=== PATIENT | female | born 1940 | race Caucasian/White ===

== ENCOUNTER 2017-05-21 06:00 | Day surgery (SDC) | payer MEDICARE, BC ==
[~2017-05-21 06:00] MED LIST: Buffered Lidocaine 0.9% SYRIN* 5 ML/SYR SYRINGE INTRADERM ONE
[2017-05-21] MEDS ORDERED: ceFAZolin 2 GM PREMIX (*) 2 GM/50 ML BAG IVPB ONE (06:07)
[2017-05-21] MEDS ORDERED: Famotidine IV* 10 MG/ML 2 ML (20 mg) ONE (06:07)
[2017-05-21] MEDS ORDERED: Buffered Lidocaine 0.9% SYRIN* 5 ML/SYR SYRINGE ONE (06:07)
[2017-05-21] MEDS ORDERED: Dexamethasone IV* 4 MG/ML 1 ML (4 MG) ONE (06:07)
[2017-05-21] MEDS ORDERED: Lidocaine 1% INJ* 10 MG/ML 30 ML SDV ONE (07:07)
[2017-05-21] MEDS ORDERED: Midazolam* 1 MG/ML 5 ML VIAL (5 MG) ONE (07:25)
[2017-05-21] MEDS ORDERED: fentaNYL* 50 MCG/ML 2 ML VIAL (100 MCG VIAL) ONE (07:26)
[2017-05-21] MEDS ORDERED: Propofol* 10 MG/ML 20 ML BTL IV PUSH ONE (07:27)
[2017-05-21] MEDS ORDERED: Ondansetron INJ* 2 MG/ML VIAL ONE (07:27)
--- NOTE | 2017-05-21 09:15 | RAD ---
INDICATION: Power port placement COMPARISONS: None relevant TECHNIQUE: Fluoroscopy was provided for a vascular access procedure. Total fluoroscopy time is: 4.9 seconds FINDINGS: A right-sided chest port is noted. IMPRESSION: FLUOROSCOPY WAS PROVIDED FOR A VASCULAR ACCESS PROCEDURE CPT II Codes: 6045F
--- NOTE | 2017-05-21 09:15 | RAD ---
HISTORY: Port placement COMPARISONS: None relevant VIEWS: 1: frontal portable view of the chest at 8:37 AM FINDINGS: LINES AND TUBES: Right-sided chest port is noted from a subclavian approach with the tip overlying the cavoatrial junction. CARDIOMEDIASTINAL SILHOUETTE: The cardiomediastinal silhouette is normal for portable technique. PLEURA: The costophrenic angles are sharp. No pleural abnormalities are noted. There is no appreciable pneumothorax. LUNG PARENCHYMA: The lungs are clear. ABDOMEN: The upper abdomen is clear. There is no subphrenic gas. BONES AND SOFT TISSUES: No bone or soft tissue abnormalities are noted. IMPRESSION: LINES AND TUBES ABOVE. NO ACTIVE CARDIOPULMONARY DISEASE.
[2017-05-21 09:34] VITALS: BP 165/87
--- NOTE | 2017-05-21 17:50 | OP ---
CC: Dr. Eduardo Osborne; Dr. Kathy Luciano OPERATIVE REPORT: DATE OF OPERATION: 05/21/17 DATE OF : 44 SURGEON: Eduardo Osborne MD PROFESSIONAL HEALTHCARE REPRESENTATIVE: None. ANESTHESIOLOGIST: Fritz Fuentes MD ANESTHESIA: LMAC anesthesia. PRE-OP DIAGNOSIS: Carcinoma of the lung. POST-OP DIAGNOSIS: Carcinoma of the lung. OPERATIVE PROCEDURE: Placement of right subclavian 8-Maced[place] PowerPort. DESCRIPTION OF PROCEDURE: The patient was supine on the operative table. After adequate intravenous sedation, compression stockings, Zofia Hugger warmer, and intravenous antibiotics, the right neck and chest region were prepped with antiseptic, draped in a sterile fashion. Local infiltrative anesthes ia was administered and right subclavian incision was created approximately 3 cm in size. Inferior po cket was created. Subclavian venipuncture was carried out without difficulty. Guidewire passed thro ugh the peel-away introducer. Catheter was placed and measured and cut at 25 cm, attached to the por t which was sutured in the pocket with 2-0 Prolene. The pocket was closed with 3-0 and 5-0 Vicryl fo llowed by Steri-Strips. The port was accessed. There was good blood return. It was flushed with sa line solution and heparinized solution, followed by a Tegaderm dressing. She was awakened and brought to Recovery in good condition. No complications. No drains. No pathologic specimens. Sponge and instrument counts were correct. Estimated blood loss was 10 mL. [id number]/[facility] #: [id number]
== END 2017-05-21 09:34 | disposition home or self-care (01) ==
LOC: OR 06:00
PROVIDERS: ATTEND Surgery
DX: C34.90 Malignant neoplasm of unspecified part of unspecified bronchus or lung (principal); Z87.891 Personal history of nicotine dependence; E11.9 Type 2 diabetes mellitus without complications; I10 Essential (primary) hypertension; Z88.8 Allergy status to other drugs, medicaments and biological substances; Z86.711 Personal history of pulmonary embolism; Z79.01 Long term (current) use of anticoagulants; E78.5 Hyperlipidemia, unspecified; Z79.84 Long term (current) use of oral hypoglycemic drugs; M10.9 Gout, unspecified; R11.0 Nausea; J44.9 Chronic obstructive pulmonary disease, unspecified; E66.9 Obesity, unspecified; Z68.32 Body mass index [BMI] 32.0-32.9, adult
CPT/HCPCS: 71010; C1788; J0690; J1100; J1642; J2001; J2250; J2405; J2704; J3010

== ENCOUNTER 2018-02-25 14:25 | Inpatient (IN) | payer MEDICARE, BC ==
[2018-02-25] MEDS ORDERED: NS 0.9% 1000 ML* 1,000 ML IV SCH (15:15)
[2018-02-25] MEDS ORDERED: Pantoprazole IV* 40 MG IV SCH (16:00)
[2018-02-25] MEDS: Pantoprazole IV* 80 MG in NS 0.9% 250 ML* 250 ML IVPB SCH (16:53)
[2018-02-25 17:10] LABS: INR 1.32 (0.77-1.02)
[2018-02-25 17:33] LABS: ABS Basophils 0 10^3/ul (0-0.2); ABS Eosinophils 0 10^3/ul (0-0.6); ABS Lymphocytes 0.3 10^3/ul (1.0-4.8); ABS Monocytes 0.4 10^3/ul (0-0.8); ABS Neutrophils 3.6 10^3/ul (1.5-7.7); ABS Nucleated RBC 0 10^3/ul; Eosinophil % 0.1 % (0-6); Hematocrit 25 % (35-47); Hemoglobin 8.2 g/dl (12.0-16.0); Lymphocyte % 6.8 % (25-47); Mean Corpuscular HGB Conc 33 g/dl (31-36); Mean Corpuscular Hemoglobin 32 pg (27-31); Mean Corpuscular Volume 97 fL (80-97); Mean Platelet Volume 7.8 um3 (7.4-10.4); Nucleated Red Blood Cells % 0.2; Platelet Count 215 10^3/ul (150-450); Red Blood Count 2.56 10^6/ul (4.00-5.40); Red Cell Distribution Width 19 % (10.5-15); White Blood Count 4.3 10^3/ul (3.5-10.8)
--- NOTE | 2018-02-25 17:42 | CONS ---
CONSULTATION REPORT: DATE OF CONSULTATION: 02/25/18 REQUESTING PHYSICIAN: Kathy Luciano MD. REASON FOR CONSULTATION: Acute blood loss anemia, occult positive. HISTORY OF PRESENT ILLNESS: This is a very pleasant 77-year-old female with a past medical history significant for adenocarcinoma of the lung, pulmonary embolus, presenting to initially her oncology office today with weakness and fatigue. On questioning today, she admits to 1 week of black stool. In the oncology office today she was noted to be occult positive and her hemoglobin was 4 g below her prior baseline, and she was directly admitted for further evaluation. She states that her stool has been black for the last week. Denies any daron hematochezia. No diarrhea. She denies any epigastric pain, dysphagia, odynophagia. She denies any NSAID consumption. She denies any history of upper endoscopy or lower endoscopy in the past. In the past, she states she has never wanted a colonoscopy. She is continuing to get cycles of chemotherapy. She states she has never had radiation. She states prior to admission, she would have a bowel movement about every 2 to 3 days with some straining and some incomplete evacuation, but denied any dark stool or blood to those movements. She states the black has been for the last week only. She is on steroid therapy with her treatments only, not on continuous dosing. PAST MEDICAL HISTORY: Significant for as above described adenocarcinoma, pulmonary embolus. PAST SURGICAL HISTORY: Significant for appendectomy and right hernia repair. FAMILY HISTORY: Maternal stomach cancer, paternal uncle with prostate cancer, and father with lung cancer. SOCIAL HISTORY: Prior tobacco use, quit at diagnosis. Social alcohol use. Denies illicit substances. REVIEW OF SYSTEMS: The remainder of the 12 systems of review of systems was negative except for as described in the HPI. PHYSICAL EXAMINATION: Vitals in office today, blood pressure 170/90, pulse 71, respirations 18, temperature 98.9, 98% on room air. In general, she is alert and oriented, in no acute distress. Well-nourished, well-developed. HEENT: Atraumatic, normocephalic. Pupils equal, round, and reactive to light. Conjunctivae are pink. Sclerae anicteric. Pupils are reactive and normal. Hematologic: Lymphatic is notable for multiple ecchymosis throughout her body. Respiratory: Normal lung solitario, clear to auscultation. Cardiovascular: Regular rate and rhythm. S1, S2 without murmurs, rubs, or gallops. Abdomen is soft. Mild epigastric tenderness is appreciated on light palpation. No rebound or guarding. Bowel sounds are positive with no palpable hepatosplenomegaly. Extremities: 1+ pitting edema bilaterally. Neurologic: No gross sensory or motor defects appreciated, nonfocal. Psychiatric: Alert and oriented x3. LABORATORY DATA: Hemoglobin today is 8.2 down from 8.8 on 02/24/18. WBC count is 4.6, platelet count is 212. Sodium is 139, potassium is 3.9, chloride 104, CO2 is 27, BUN is 26, creatinine is 0.81. Glucose is 210. Again, occult diagnostic testing was positive for occult blood. ASSESSMENT AND PLAN: This is a very pleasant 77-year-old female with adenocarcinoma of the lung with history of pulmonary embolism on Xarelto therapy , presenting with melena and acute blood loss anemia. 1. Acute blood loss anemia. Plan: Pantoprazole IV drip, continuous. We would monitor H and H every 6 hours. Keep 2 units of PRBCs on hold transfusion per primary service. Agree with holding anticoagulant at this time. The last dose of Xarelto was in the a.m. of 02/25/18. She is hemodynamically stable. She is not tachycardic or hypotensive. Her BUN is slightly elevated. Given the melena and positive occult blood, we will plan on tentative endoscopy on . 2. Non-small cell lung cancer of the lung, stage 4 per Oncology service. 3. History of pulmonary embolism. Currently anticoagulation is being held by primary service. 4. The patient is noted to be a DNR/DNI with a MOLST form completed per oncology note. [id number]/[facility] #: [id number] [facility]
[2018-02-26 00:58] LABS: ABS Basophils 0 10^3/ul (0-0.2); ABS Eosinophils 0 10^3/ul (0-0.6); ABS Lymphocytes 0.4 10^3/ul (1.0-4.8); ABS Monocytes 0.4 10^3/ul (0-0.8); ABS Neutrophils 2.1 10^3/ul (1.5-7.7); ABS Nucleated RBC 0 10^3/ul; Eosinophil % 0.1 % (0-6); Hematocrit 21 % (35-47); Lymphocyte % 13.9 % (25-47); Mean Corpuscular HGB Conc 33 g/dl (31-36); Mean Corpuscular Hemoglobin 32 pg (27-31); Mean Corpuscular Volume 97 fL (80-97); Mean Platelet Volume 7.5 um3 (7.4-10.4); Nucleated Red Blood Cells % 0; Platelet Count 171 10^3/ul (150-450); Red Blood Count 2.19 10^6/ul (4.00-5.40); Red Cell Distribution Width 18 % (10.5-15); White Blood Count 2.9 10^3/ul (3.5-10.8)
[2018-02-26] MEDS: Levothyroxine TAB* 112 MCG TAB PO SCH (05:41)
[2018-02-26] MEDS: Pantoprazole IV* 80 MG in NS 0.9% 250 ML* 250 ML IVPB SCH ×2 (06:04→20:32)
[2018-02-26 07:28] LABS: ABS Basophils 0 10^3/ul (0-0.2); ABS Eosinophils 0 10^3/ul (0-0.6); ABS Lymphocytes 0.5 10^3/ul (1.0-4.8); ABS Monocytes 0.3 10^3/ul (0-0.8); ABS Neutrophils 1.7 10^3/ul (1.5-7.7); ABS Nucleated RBC 0 10^3/ul; Eosinophil % 0.7 % (0-6); Hematocrit 24 % (35-47); Hemoglobin 8.1 g/dl (12.0-16.0); Lymphocyte % 20.4 % (25-47); Mean Corpuscular HGB Conc 34 g/dl (31-36); Mean Corpuscular Hemoglobin 33 pg (27-31); Mean Corpuscular Volume 97 fL (80-97); Mean Platelet Volume 7.6 um3 (7.4-10.4); Nucleated Red Blood Cells % 0.2; Platelet Count 155 10^3/ul (150-450); Red Blood Count 2.48 10^6/ul (4.00-5.40); Red Cell Distribution Width 18 % (10.5-15); White Blood Count 2.6 10^3/ul (3.5-10.8)
[2018-02-26 07:45] LABS: EGFR Non-African American 75.3 (>60)
[2018-02-26] MEDS ORDERED: Metoprolol Succinate XL TAB* 50 MG PO SCH (09:00)
[2018-02-26] MEDS ORDERED: Rivaroxaban TAB(*) 20 MG TAB PO SCH (09:00)
[2018-02-26] MEDS: Lisinopril TAB* 10 MG PO SCH (09:18)
[2018-02-26] MEDS: Metoprolol Succinate XL TAB* 50 MG PO SCH (09:18)
[2018-02-26] MEDS: Atorvastatin* 10 MG TAB PO SCH (09:18)
[2018-02-26] MEDS: glipiZIDE TAB.XL* 5 MG PO SCH (09:18)
[2018-02-26] MEDS ORDERED: fentaNYL* 50 MCG/ML 2 ML VIAL (100 MCG VIAL) ONE (12:42)
[2018-02-26] MEDS ORDERED: Midazolam* 1 MG/ML 10 ML VIAL (10 MG) ONE (12:42)
--- NOTE | 2018-02-26 14:44 | PN ---
Progress Note - Progress Note Date of Service: 02/26/18 - Gastroenterology Note: Patient seen and examined this morning. No new overnight issues. No rectal bleeding. No nausea/emesis. No abdominal pain. ] Vital Signs: Temp Pulse Resp BP Pulse Ox 97.9 F 55 18 119/58 96 02/26/18 07:30 02/26/18 07:30 02/26/18 08:00 02/26/18 07:30 02/26/18 07:30 Physical Examination: General: NAD. CV: RRR. PULM: CTAB. ABDOMEN: Obese, soft. NT/ND. +BS. EXT: No C/C/E. Laboratory Results - last 24 hr 02/25/18 02/25/18 02/25/18 16:34 16:40 16:40 WBC 4.3 RBC 2.56 L Hgb 8.2 L Hct 25 L MCV 97 MCH 32 H MCHC 33 RDW 19 H Plt Count 215 MPV 7.8 Neut % (Auto) 84.1 H Lymph % (Auto) 6.8 L [place] % (Auto) 8.8 H Eos % (Auto) 0.1 Baso % (Auto) 0.2 Absolute Neuts (auto) 3.6 Absolute Lymphs (auto) 0.3 L Absolute Monos (auto) 0.4 Absolute Eos (auto) 0 Absolute Basos (auto) 0 Absolute Nucleated RBC 0 Nucleated RBC % 0.2 INR (Anticoag Therapy) 1.32 H APTT 31.8 Sodium Potassium Chloride Carbon Dioxide Anion Gap BUN Creatinine Est GFR ( Amer) Est GFR (Non-Af Amer) BUN/Creatinine Ratio Glucose POC Glucose (mg/dL) 176 H Calcium Total Bilirubin AST ALT Alkaline Phosphatase Total Protein Albumin Globulin Albumin/Globulin Ratio Blood Type Antibody Screen Crossmatch 02/26/18 02/26/18 02/26/18 00:43 00:50 00:50 WBC 2.9 L RBC 2.19 L Hgb 7.0 L Hct 21 L MCV 97 MCH 32 H MCHC 33 RDW 18 H Plt Count 171 MPV 7.5 Neut % (Auto) 72.9 Lymph % (Auto) 13.9 L [place] % (Auto) 12.9 H Eos % (Auto) 0.1 Baso % (Auto) 0.2 Absolute Neuts (auto) 2.1 Absolute Lymphs (auto) 0.4 L Absolute Monos (auto) 0.4 Absolute Eos (auto) 0 Absolute Basos (auto) 0 Absolute Nucleated RBC 0 Nucleated RBC % 0 INR (Anticoag Therapy) APTT Sodium Potassium Chloride Carbon Dioxide Anion Gap BUN Creatinine Est GFR ( Amer) Est GFR (Non-Af Amer) BUN/Creatinine Ratio Glucose POC Glucose (mg/dL) 139 H Calcium Total Bilirubin AST ALT Alkaline Phosphatase Total Protein Albumin Globulin Albumin/Globulin Ratio Blood Type AB Positive Antibody Screen Negative Crossmatch See Detail 02/26/18 02/26/18 02/26/18 07:15 07:15 07:40 WBC 2.6 L RBC 2.48 L Hgb 8.1 L Hct 24 L MCV 97 MCH 33 H MCHC 34 RDW 18 H Plt Count 155 MPV 7.6 Neut % (Auto) 65.2 Lymph % (Auto) 20.4 L [place] % (Auto) 13.2 H Eos % (Auto) 0.7 Baso % (Auto) 0.5 Absolute Neuts (auto) 1.7 Absolute Lymphs (auto) 0.5 L Absolute Monos (auto) 0.3 Absolute Eos (auto) 0 Absolute Basos (auto) 0 Absolute Nucleated RBC 0 Nucleated RBC % 0.2 INR (Anticoag Therapy) APTT Sodium 142 Potassium 3.6 Chloride 108 Carbon Dioxide 29 Anion Gap 5 BUN 22 Creatinine 0.75 Est GFR ( Amer) 91.2 Est GFR (Non-Af Amer) 75.3 BUN/Creatinine Ratio 29.3 H Glucose 84 POC Glucose (mg/dL) 87 Calcium 8.5 L Total Bilirubin 0.60 AST 24 ALT 19 Alkaline Phosphatase 67 Total Protein 5.1 L Albumin 3.0 L Globulin 2.1 Albumin/Globulin Ratio 1.4 Blood Type Antibody Screen Crossmatch A/P: 77 yo female with adenocarcinoma of the lung on palliative chemotherapy, DM type II, HTN, HLD and PE last year on Xarelto who presented with bright red blood on rectal examination at PCP's office and Hgb of 7.0. There is a questionable hx of melena over the last week. EGD today revealed gastroduodenitis with small duodenal erosion but no active GI bleeding or previous stigmata of bleeding. Last Colonoscopy was 50 years ago and was normal. 1. Acute blood loss anemia ~S/p 2 units of prbcs last night. ~Hgb 8.1 this am after 2 units of prbcs. ~EGD today showed mild GERD, gastroduodenitis with a small erosion in duodenum. Clotest pending to r/o H.pylori. ~On PPI daily. ~Patient agreeable to Colonoscopy on Thursday 03/01 while Xarelto is on hold. ~Will advance diet today and plan for preparation on Thursday with clear liquids. ~Continue to monitor H/H and transfuse prbcs prn. ~Discussed case with Dr. Luciano, Dr. Ryan and patient pre- and post- procedure and patient is agreeable. 2. Adenocarcinoma of the lung ~On chemotherapy. ~Heme/Onc following. Please call with any questions or concerns. Natalie Serrano D.O.
--- NOTE | 2018-02-26 17:24 | PN ---
Progress Note - Progress Note Date of Service: 02/26/18 SOAP: Subjective: [Denies overnight symptoms. No abd pain, n/v. No BMs.] Objective: [ Laboratory Results - last 24 hr 02/25/18 02/26/18 02/26/18 16:40 00:43 00:50 WBC 4.3 2.9 L RBC 2.56 L 2.19 L Hgb 8.2 L 7.0 L Hct 25 L 21 L MCV 97 97 MCH 32 H 32 H MCHC 33 33 RDW 19 H 18 H Plt Count 215 171 MPV 7.8 7.5 Neut % (Auto) 84.1 H 72.9 Lymph % (Auto) 6.8 L 13.9 L [place] % (Auto) 8.8 H 12.9 H Eos % (Auto) 0.1 0.1 Baso % (Auto) 0.2 0.2 Absolute Neuts (auto) 3.6 2.1 Absolute Lymphs (auto) 0.3 L 0.4 L Absolute Monos (auto) 0.4 0.4 Absolute Eos (auto) 0 0 Absolute Basos (auto) 0 0 Absolute Nucleated RBC 0 0 Nucleated RBC % 0.2 0 Sodium Potassium Chloride Carbon Dioxide Anion Gap BUN Creatinine Est GFR ( Amer) Est GFR (Non-Af Amer) BUN/Creatinine Ratio Glucose POC Glucose (mg/dL) 139 H Calcium Total Bilirubin AST ALT Alkaline Phosphatase Total Protein Albumin Globulin Albumin/Globulin Ratio Blood Type Antibody Screen Crossmatch 02/26/18 02/26/18 02/26/18 00:50 07:15 07:15 WBC 2.6 L RBC 2.48 L Hgb 8.1 L Hct 24 L MCV 97 MCH 33 H MCHC 34 RDW 18 H Plt Count 155 MPV 7.6 Neut % (Auto) 65.2 Lymph % (Auto) 20.4 L [place] % (Auto) 13.2 H Eos % (Auto) 0.7 Baso % (Auto) 0.5 Absolute Neuts (auto) 1.7 Absolute Lymphs (auto) 0.5 L Absolute Monos (auto) 0.3 Absolute Eos (auto) 0 Absolute Basos (auto) 0 Absolute Nucleated RBC 0 Nucleated RBC % 0.2 Sodium 142 Potassium 3.6 Chloride 108 Carbon Dioxide 29 Anion Gap 5 BUN 22 Creatinine 0.75 Est GFR ( Amer) 91.2 Est GFR (Non-Af Amer) 75.3 BUN/Creatinine Ratio 29.3 H Glucose 84 POC Glucose (mg/dL) Calcium 8.5 L Total Bilirubin 0.60 AST 24 ALT 19 Alkaline Phosphatase 67 Total Protein 5.1 L Albumin 3.0 L Globulin 2.1 Albumin/Globulin Ratio 1.4 Blood Type AB Positive Antibody Screen Negative Crossmatch See Detail 02/26/18 02/26/18 07:40 15:23 WBC RBC Hgb Hct MCV MCH MCHC RDW Plt Count MPV Neut % (Auto) Lymph % (Auto) [place] % (Auto) Eos % (Auto) Baso % (Auto) Absolute Neuts (auto) Absolute Lymphs (auto) Absolute Monos (auto) Absolute Eos (auto) Absolute Basos (auto) Absolute Nucleated RBC Nucleated RBC % Sodium Potassium Chloride Carbon Dioxide Anion Gap BUN Creatinine Est GFR ( Amer) Est GFR (Non-Af Amer) BUN/Creatinine Ratio Glucose POC Glucose (mg/dL) 87 93 Calcium Total Bilirubin AST ALT Alkaline Phosphatase Total Protein Albumin Globulin Albumin/Globulin Ratio Blood Type Antibody Screen Crossmatch Atorvastatin Calcium (Lipitor*) 10 mg PO QAM [facility] Last Admin: 02/26/18 09:18 Dose: 10 mg Glipizide (Glucotrol Xl*) 5 mg PO QAM [facility] Last Admin: 02/26/18 09:18 Dose: 5 mg Sodium Chloride (Ns 0.9% 1000 Ml*) 1,000 mls @ 100 mls/hr IV PER RATE [facility] Last Admin: 02/25/18 16:42 Dose: 100 mls/hr Pantoprazole Sodium 80 mg/ (Sodium Chloride) 250 mls @ 25 mls/hr IVPB Q10H [facility] ; Protocol Last Admin: 02/26/18 06:04 Dose: 25 mls/hr Levothyroxine Sodium (Synthroid Tab*) 112 mcg PO 0600 [facility] Last Admin: 02/26/18 05:41 Dose: 112 mcg Lisinopril (Prinivil Tab*) 30 mg PO QAM [facility] Last Admin: 02/26/18 09:18 Dose: 30 mg Metoprolol Succinate (Toprol Xl Tab*) 50 mg PO DAILY [facility] Last Admin: 02/26/18 09:18 Dose: 50 mg Vital Signs: Temp Pulse Resp BP Pulse Ox 97.9 F 55 18 119/58 96 02/26/18 07:30 02/26/18 07:30 02/26/18 08:00 02/26/18 07:30 02/26/18 07:30 Exam: Gen: Well appearing 77 yo female in NAD HEENT: MMM CV: RRR, no m/r/g Resp: lungs CTA Abd: soft, nonTTP Ext: no edema ] Assessment: [77 yo female with metastatic NSCLC and h/o DVT on Xarelto with DM who was noted to be progressively anemic, admitted for GI bleed. Upper endoscopy completed this am without obvious source of bleeding.] Plan: [1. GI bleed - no obvious source on upper endoscopy today - cont to monitor H&H, transfuse as necessary - patient agreeable to colonoscopy Thursday 2. NSCLC - on Pemetrexed, tolerating very well 3. DM 4. H/o DVT - Xarelto on hold Dispo: cont inpatient care, colonoscopy Thursday]
[2018-02-27] MEDS: Levothyroxine TAB* 112 MCG TAB PO SCH (06:58)
[2018-02-27 07:38] LABS: ABS Basophils 0 10^3/ul (0-0.2); ABS Eosinophils 0.1 10^3/ul (0-0.6); ABS Lymphocytes 0.7 10^3/ul (1.0-4.8); ABS Monocytes 0.1 10^3/ul (0-0.8); ABS Neutrophils 1.6 10^3/ul (1.5-7.7); ABS Nucleated RBC 0 10^3/ul; Hematocrit 25 % (35-47); Hemoglobin 8.5 g/dl (12.0-16.0); Lymphocyte % 28.5 % (25-47); Mean Corpuscular HGB Conc 34 g/dl (31-36); Mean Corpuscular Hemoglobin 33 pg (27-31); Mean Corpuscular Volume 96 fL (80-97); Mean Platelet Volume 7.8 um3 (7.4-10.4); Nucleated Red Blood Cells % 0.1; Platelet Count 158 10^3/ul (150-450); Red Blood Count 2.62 10^6/ul (4.00-5.40); Red Cell Distribution Width 18 % (10.5-15); White Blood Count 2.5 10^3/ul (3.5-10.8)
[2018-02-27 07:49] LABS: EGFR Non-African American 66.1 (>60)
[2018-02-27] MEDS: Pantoprazole IV* 80 MG in NS 0.9% 250 ML* 250 ML IVPB SCH ×2 (08:20→09:18)
[2018-02-27] MEDS: Metoprolol Succinate XL TAB* 50 MG PO SCH (09:21)
[2018-02-27] MEDS: glipiZIDE TAB.XL* 5 MG PO SCH (09:21)
[2018-02-27] MEDS: Atorvastatin* 10 MG TAB PO SCH (09:21)
[2018-02-27] MEDS: Lisinopril TAB* 10 MG PO SCH (09:21)
--- NOTE | 2018-02-27 10:14 | PN ---
Progress Note - Progress Note Date of Service: 02/27/18 SOAP: Subjective: [Feeling well. No complaints. No BM.] Objective: [ Atorvastatin Calcium (Lipitor*) 10 mg PO QAM [facility] Last Admin: 02/27/18 09:21 Dose: 10 mg Glipizide (Glucotrol Xl*) 5 mg PO QAM [facility] Last Admin: 02/27/18 09:21 Dose: 5 mg Sodium Chloride (Ns 0.9% 1000 Ml*) 1,000 mls @ 100 mls/hr IV PER RATE [facility] Last Admin: 02/25/18 16:42 Dose: 100 mls/hr Pantoprazole Sodium 80 mg/ (Sodium Chloride) 250 mls @ 25 mls/hr IVPB Q10H [facility] ; Protocol Last Admin: 02/27/18 09:18 Dose: Not Given Levothyroxine Sodium (Synthroid Tab*) 112 mcg PO 0600 [facility] Last Admin: 02/27/18 06:58 Dose: 112 mcg Lisinopril ([facility]inivil Tab*) [facility] Last Admin: 02/27/18 09:21 Dose: 30 mg Metoprolol Succinate (Toprol Xl Tab*) 50 mg PO DAILY [facility] Last Admin: 02/27/18 09:21 Dose: 50 mg Laboratory Results - last 24 hr 02/26/18 02/27/18 02/27/18 15:23 06:23 06:45 WBC 2.5 L RBC 2.62 L Hgb 8.5 L Hct 25 L MCV 96 MCH 33 H MCHC 34 RDW 18 H Plt Count 158 MPV 7.8 Neut % (Auto) 63.0 Lymph % (Auto) 28.5 [place] % (Auto) 5.1 Eos % (Auto) 3.0 Baso % (Auto) 0.4 Absolute Neuts (auto) 1.6 Absolute Lymphs (auto) 0.7 L Absolute Monos (auto) 0.1 Absolute Eos (auto) 0.1 Absolute Basos (auto) 0 Absolute Nucleated RBC 0 Nucleated RBC % 0.1 Sodium Potassium Chloride Carbon Dioxide Anion Gap BUN Creatinine Est GFR ( Amer) Est GFR (Non-Af Amer) BUN/Creatinine Ratio Glucose POC Glucose (mg/dL) 93 89 Calcium Total Bilirubin AST ALT Alkaline Phosphatase Total Protein Albumin Globulin Albumin/Globulin Ratio 02/27/18 06:45 WBC RBC Hgb Hct MCV MCH MCHC RDW Plt Count MPV Neut % (Auto) Lymph % (Auto) [place] % (Auto) Eos % (Auto) Baso % (Auto) Absolute Neuts (auto) Absolute Lymphs (auto) Absolute Monos (auto) Absolute Eos (auto) Absolute Basos (auto) Absolute Nucleated RBC Nucleated RBC % Sodium 142 Potassium 3.7 Chloride 108 Carbon Dioxide 29 Anion Gap 5 BUN 21 Creatinine 0.84 Est GFR ( Amer) 80.0 Est GFR (Non-Af Amer) 66.1 BUN/Creatinine Ratio 25.0 H Glucose 84 POC Glucose (mg/dL) Calcium 8.2 L Total Bilirubin 0.40 AST 22 ALT 20 Alkaline Phosphatase 65 Total Protein 5.0 L Albumin 2.9 L Globulin 2.1 Albumin/Globulin Ratio 1.4 Vital Signs: Temp Pulse Resp BP Pulse Ox 97.9 F 70 20 127/69 95 02/27/18 07:33 02/27/18 07:33 02/27/18 08:00 02/27/18 07:33 02/27/18 07:33 Exam: Gen: Well appearing 77 yo female in NAD HEENT: MMM CV: RRR, no m/r/g Resp: lungs CTA Abd: soft, nonTTP Ext: no edema ] Assessment: [77 yo female with metastatic NSCLC and h/o DVT on Xarelto with DM who was noted to be progressively anemic, admitted for GI bleed. Upper endoscopy completed yesterday without obvious source of bleeding. Colonoscopy pending for Thursday.] Plan: [1. GI bleed - no obvious source on upper endoscopy - Hgb stable now, cont to monitor - pending colonoscopy Thursday 2. NSCLC - on Pemetrexed, tolerating very well 3. DM 4. H/o DVT - Xarelto on hold - may require IVC filter depending on colonoscopy results Dispo: cont inpatient care, colonoscopy Thursday]
[2018-02-28] MEDS: Levothyroxine TAB* 112 MCG TAB PO SCH (05:06)
[2018-02-28 05:26] LABS: ABS Basophils 0 10^3/ul (0-0.2); ABS Eosinophils 0.1 10^3/ul (0-0.6); ABS Lymphocytes 0.6 10^3/ul (1.0-4.8); ABS Monocytes 0.1 10^3/ul (0-0.8); ABS Nucleated RBC 0 10^3/ul; Eosinophil % 3.4 % (0-6); Hematocrit 26 % (35-47); Hemoglobin 8.7 g/dl (12.0-16.0); Lymphocyte % 21.7 % (25-47); Mean Corpuscular HGB Conc 34 g/dl (31-36); Mean Corpuscular Hemoglobin 32 pg (27-31); Mean Corpuscular Volume 96 fL (80-97); Mean Platelet Volume 7.5 um3 (7.4-10.4); Nucleated Red Blood Cells % 0.1; Platelet Count 165 10^3/ul (150-450); Red Blood Count 2.72 10^6/ul (4.00-5.40); Red Cell Distribution Width 17 % (10.5-15); White Blood Count 2.8 10^3/ul (3.5-10.8)
[2018-02-28 05:37] LABS: EGFR Non-African American 66.1 (>60)
--- NOTE | 2018-02-28 09:00 | PN ---
Progress Note - Progress Note Date of Service: 02/28/18 SOAP: Subjective: [Doing well. Hard, dark BM yesterday. Clear liquids today and starting prep this afternoon for colonoscopy tomorrow. No c/o abd pain, n/v.] Objective: [ Laboratory Results - last 24 hr 02/27/18 02/27/18 02/28/18 14:43 19:48 03:44 WBC RBC Hgb Hct MCV MCH MCHC RDW Plt Count MPV Neut % (Auto) Lymph % (Auto) [place] % (Auto) Eos % (Auto) Baso % (Auto) Absolute Neuts (auto) Absolute Lymphs (auto) Absolute Monos (auto) Absolute Eos (auto) Absolute Basos (auto) Absolute Nucleated RBC Nucleated RBC % Sodium Potassium Chloride Carbon Dioxide Anion Gap BUN Creatinine Est GFR ( Amer) Est GFR (Non-Af Amer) BUN/Creatinine Ratio Glucose POC Glucose (mg/dL) 145 H 171 H 123 H Calcium Total Bilirubin AST ALT Alkaline Phosphatase Total Protein Albumin Globulin Albumin/Globulin Ratio 02/28/18 02/28/18 05:12 05:12 WBC 2.8 L RBC 2.72 L Hgb 8.7 L Hct 26 L MCV 96 MCH 32 H MCHC 34 RDW 17 H Plt Count 165 MPV 7.5 Neut % (Auto) 71.6 Lymph % (Auto) 21.7 L [place] % (Auto) 2.7 Eos % (Auto) 3.4 Baso % (Auto) 0.6 Absolute Neuts (auto) 2.0 Absolute Lymphs (auto) 0.6 L Absolute Monos (auto) 0.1 Absolute Eos (auto) 0.1 Absolute Basos (auto) 0 Absolute Nucleated RBC 0 Nucleated RBC % 0.1 Sodium 140 Potassium 4.0 Chloride 106 Carbon Dioxide 32 Anion Gap 2 BUN 19 Creatinine 0.84 Est GFR ( Amer) 80.0 Est GFR (Non-Af Amer) 66.1 BUN/Creatinine Ratio 22.6 H Glucose 130 H POC Glucose (mg/dL) Calcium 8.6 Total Bilirubin 0.40 AST 20 ALT 19 Alkaline Phosphatase 68 Total Protein 5.3 L Albumin 3.2 Globulin 2.1 Albumin/Globulin Ratio 1.5 Atorvastatin Calcium (Lipitor*) [facility] Last Admin: 02/27/18 09:21 Dose: 10 mg Glipizide (Glucotrol Xl*) 5 mg PO QAM [facility] Last Admin: 02/27/18 09:21 Dose: 5 mg Heparin Sodium (Porcine) (Heparin Flush Port ([place])) 5 ml FLUSH DAILY [facility]; Protocol Last Admin: 02/28/18 05:07 Dose: 5 ml Levothyroxine Sodium (Synthroid Tab*) 112 mcg PO 0600 [facility] Last Admin: 02/28/18 05:06 Dose: 112 mcg Lisinopril (Prinivil Tab*) 30 mg PO QAM [facility] Last Admin: 02/27/18 09:21 Dose: 30 mg Metoprolol Succinate (Toprol Xl Tab*) 50 mg PO DAILY [facility] Last Admin: 02/27/18 09:21 Dose: 50 mg Polyethylene Glycol/Electrolytes (Golytely*) 4,000 ml PO ONCE ONE; Protocol Stop: 02/28/18 16:01 Vital Signs Temp Pulse Resp BP Pulse Ox 98.7 F 76 18 132/53 96 02/28/18 03:42 02/28/18 03:42 02/28/18 03:42 02/28/18 03:42 02/28/18 03:42 Exam: Gen: Well appearing 77 yo female in NAD HEENT: MMM CV: RRR, no m/r/g Resp: lungs CTA Abd: soft, nonTTP Ext: trace edema LLE, non RLE ] Assessment: [77 yo female with metastatic NSCLC and h/o DVT on Xarelto with DM who was noted to be progressively anemic, admitted for GI bleed. Upper endoscopy completed without obvious source of bleeding. Colonoscopy pending for tomorrow. ] Plan: [1. GI bleed - no obvious source on upper endoscopy - Hgb stable now, cont to monitor - pending colonoscopy tomorrow 2. NSCLC - on Pemetrexed, tolerating very well 3. DM 4. H/o DVT - Xarelto on hold - may require IVC filter depending on colonoscopy results Dispo: cont inpatient care, colonoscopy Thursday] [
[2018-02-28] MEDS: Metoprolol Succinate XL TAB* 50 MG PO SCH (09:07)
[2018-02-28] MEDS: Lisinopril TAB* 10 MG PO SCH (09:07)
[2018-02-28] MEDS: glipiZIDE TAB.XL* 5 MG PO SCH (09:08)
[2018-02-28] MEDS: Atorvastatin* 10 MG TAB PO SCH (09:08)
[2018-02-28] MEDS ORDERED: PEG 3000 GI LAVAGE* 1 GALLON PO ONE (16:00)
--- NOTE | 2018-03-01 04:17 | PRO ---
CC: Dr. Viola Hodge; Dr. Luciano; Dr. Heredia; Dr. Natalie Serrano * GASTROENTEROLOGY OPERATIVE REPORT: DATE OF PROCEDURE: 02/26/18 - ROOM #403 PROCEDURE PERFORMED: Esophagogastroduodenoscopy to third portion of duodenum. GENERAL NEUROLOGIST: Natalie Serrano DO. ANESTHESIA: 1. Midazolam 5 mg IV. 2. Fentanyl 75 mcg IV. 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 She was transfused 1 unit of packed red blood cells overnight; hemoglobin is currently 8.1. She has had no further episodes of bleeding. She has a questionable history of melena over the last week as well. Her last dose of Xarelto was yesterday morning. She had a colonoscopy approximately 50 years ago which was normal at that time. She denies recent endoscopy. PREOPERATIVE DIAGNOSES: 1. Acute blood loss anemia. 2. Rectal bleeding. POSTOPERATIVE DIAGNOSES: 1. Normal-appearing second and third portion of the duodenum. 2. Mild duodenitis of the bulb with 1 erosion. 3. Mild antral gastritis with CLOtest, rule out Helicobacter pylori. 4. Regular-appearing Z-line at 35 cm. 5. Normal mid and proximal esophagus. 6. No active bleeding or previous stigmata of bleeding seen on this examination. 7. Biopsies were not obtained due to Xarelto therapy. RECOMMENDATIONS: 1. Case was discussed with Dr. Ryan, Dr. Luciano, as well as the patient pre and post-procedure. Since the upper endoscopy was fairly unrevealing for a cause of patient's anemia, we will plan for a colonoscopy to be performed on Thursday, 2 days from now for further evaluation. We will continue to hold Xarelto therapy. 2. Continue PPI therapy daily. OPERATIVE PROCEDURE: Esophagogastroduodenoscopy was explained in detail to the patient. The risks, benefits, complications, alternatives, and possibilities of missed lesions were explained and understood. Complications included, but were not limited to, reaction to anesthesia, aspiration, increased risk of bleeding, infection and perforation. All questions were answered. The patient demonstrated understanding of the conversation. Informed consent was obtained. Next, the patient was brought to the endoscopy suite, placed in the left lateral recumbent position while blood pressure, cardiac, and oxygen monitors were applied. The patient was found to be a fit candidate for moderate anesthesia. After adequate IV sedation was achieved, a bite-block was placed. Next, a standard adult Olympus endoscope was inserted per os under direct visualization to the first, second, and third portions of the duodenum. The second and third portions of the duodenum were normal-appearing. Entry into the first portion revealed mild erythema consistent with duodenitis with 1 very small erosion. Further withdrawal into the gastric lumen revealed mild erythema consistent with gastritis. On retroflexion, the patient had a normal gastric cardia sling. The rest of the gastric mucosa was normal appearing. Further withdrawal into the distal esophagus revealed a regular- appearing Z- line at 35 cm. No active bleeding or previous stigmata with bleeding was seen on this examination. Also, cold forceps biopsies were not performed on this examination from the duodenum as well as the esophagus due to current Xarelto therapy. Small tissue sample was obtained for CLOtest to rule out H. pylori. The rest of the tubular esophagus was normal-appearing. Air was then removed from the patient, endoscope was removed from the patient. The patient tolerated the procedure well. There were no immediate complications. 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 Thank you, Dr. Luciano, for allowing us to participate in the care of your patient. If you should have any further questions or concerns, please do not hesitate to contact us. [id number]/[place] #: [id number] [place]
[2018-03-01] MEDS: Levothyroxine TAB* 112 MCG TAB PO SCH (05:03)
[2018-03-01 05:53] LABS: ABS Basophils 0 10^3/ul (0-0.2); ABS Eosinophils 0.1 10^3/ul (0-0.6); ABS Lymphocytes 0.4 10^3/ul (1.0-4.8); ABS Monocytes 0.1 10^3/ul (0-0.8); ABS Neutrophils 1.6 10^3/ul (1.5-7.7); ABS Nucleated RBC 0 10^3/ul; Eosinophil % 3.3 % (0-6); Hematocrit 26 % (35-47); Lymphocyte % 19.4 % (25-47); Mean Corpuscular HGB Conc 35 g/dl (31-36); Mean Corpuscular Hemoglobin 33 pg (27-31); Mean Corpuscular Volume 95 fL (80-97); Mean Platelet Volume 7.4 um3 (7.4-10.4); Nucleated Red Blood Cells % 0; Platelet Count 142 10^3/ul (150-450); Red Blood Count 2.73 10^6/ul (4.00-5.40); Red Cell Distribution Width 17 % (10.5-15); White Blood Count 2.2 10^3/ul (3.5-10.8)
[2018-03-01] MEDS: Atorvastatin* 10 MG TAB PO SCH (09:01)
[2018-03-01] MEDS: Metoprolol Succinate XL TAB* 50 MG PO SCH (09:01)
[2018-03-01] MEDS: Lisinopril TAB* 10 MG PO SCH (09:01)
[2018-03-01] MEDS: glipiZIDE TAB.XL* 5 MG PO SCH (09:01)
[2018-03-01] MEDS ORDERED: fentaNYL* 50 MCG/ML 2 ML VIAL (100 MCG VIAL) ONE (14:57)
[2018-03-01] MEDS ORDERED: Midazolam* 1 MG/ML 10 ML VIAL (10 MG) ONE (14:57)
[2018-03-02] MEDS: Levothyroxine TAB* 112 MCG TAB PO SCH (05:08)
[2018-03-02] MEDS: Metoprolol Succinate XL TAB* 50 MG PO SCH (08:52)
[2018-03-02] MEDS: Lisinopril TAB* 10 MG PO SCH (08:52)
[2018-03-02] MEDS: glipiZIDE TAB.XL* 5 MG PO SCH (08:52)
[2018-03-02] MEDS: Atorvastatin* 10 MG TAB PO SCH (08:52)
--- NOTE | 2018-03-02 17:18 | PN ---
Progress Note - Progress Note Date of Service: 03/02/18 SOAP: Subjective: [No complaints. s/p colonoscopy yesterday. Objective: [ Laboratory Results - last 24 hr 03/01/18 03/02/18 03/02/18 19:43 05:11 12:22 POC Glucose (mg/dL) 181 H 149 H 157 H Atorvastatin Calcium (Lipitor*) 10 mg PO QAM [facility] Last Admin: 03/02/18 08:52 Dose: 10 mg Glipizide (Glucotrol Xl*) 5 mg PO QAM [facility] Last Admin: 03/02/18 08:52 Dose: 5 mg Heparin Sodium (Porcine) (Heparin Flush Port (Ivad)) 5 ml FLUSH DAILY [facility]; Protocol Last Admin: 03/02/18 08:52 Dose: 5 ml Levothyroxine Sodium (Synthroid Tab*) 112 mcg PO 0600 [facility] Last Admin: 03/02/18 05:08 Dose: 112 mcg Lisinopril (Prinivil Tab*) 30 mg PO QAM [facility] Last Admin: 03/02/18 08:52 Dose: 30 mg Metoprolol Succinate (Toprol Xl Tab*) 50 mg PO DAILY [facility] Last Admin: 03/02/18 08:52 Dose: 50 mg Vital Signs: Temp Pulse Resp BP Pulse Ox 98.8 F 84 16 108/46 97 03/02/18 15:24 03/02/18 15:24 03/02/18 15:24 03/02/18 15:24 03/02/18 15:24 Exam: Gen: Well appearing 77 yo female in NAD HEENT: MMM CV: RRR, no m/r/g Resp: lungs CTA Abd: soft, nonTTP Ext: trace edema LLE, non RLE ] Assessment: [77 yo female with metastatic NSCLC and h/o DVT on Xarelto with DM who was noted to be progressively anemic, admitted for GI bleed. Upper endoscopy completed without obvious source of bleeding. Colonoscopy demonstrated a 4cm friable polyp. Plan: [1. GI bleed - likely from friable polyp identified - biopsy results are benign, but due to its size and bleeding it needs to be resected - requested surgical consultation, procedure can be completed as an outpatient 2. NSCLC - on maintenance Pemetrexed, tolerating very well 3. DM 4. H/o DVT - Xarelto on hold - requires IVC filter, to be placed by general surgery Dispo: IVC filter tomorrow, likely discharge following with surgical follow up regarding colon resection
--- NOTE | 2018-03-02 20:56 | CONS ---
CC: Viola Hodge MD; [facility]; [facility] * CONSULTATION REPORT: DATE OF CONSULT: 03/02/18 REQUESTING PROVIDER: LORRIE Figueroa REASON FOR CONSULT: Lower GI bleed with cecal mass and history of PE/DVT. HISTORY OF PRESENT ILLNESS: This is a 77-year-old female with a history of metastatic adeno CA of the lung diagnosed after LN biopsy. She was treated with chemotherapy and has stable disease with high level of function. The patient has history of DVT/PE, for which she has been treated with Xarelto. She had noted dark stools on occasion and had been found to have occult blood on testing by her primary and anemic with a hemoglobin of 8. She was admitted to [facility] on 02/25/18 and she was transfused with a unit of blood. The patient had GI consultation and inpatient upper and lower endoscopy. Upper endoscopy on 02/26/18 revealed mild duodenitis and mild antral gastritis, but no evidence of bleeding. She underwent a colonoscopy on 03/01/18, which revealed a friable large cecal polyp, which was not amenable to endoscopic interventions and therefore surgical consultation was requested. The patient has been off Xarelto and has been hemodynamically stable and no report of melena or hematochezia. PAST MEDICAL HISTORY: Significant for above mentioned illnesses as well as type 2 diabetes, hyperlipidemia, hypertension, pulmonary embolism. PAST SURGICAL HISTORY: Appendectomy, carpal tunnel release, open ventral incisional hernia repair with mesh, tonsillectomy, tubal ligation. SOCIAL HISTORY: She is . Ex-smoker. Has occasional alcohol. FAMILY HISTORY: Mother had stomach cancer. Father had lung cancer. REVIEW OF SYSTEMS: Review of systems was completed. She does report fatigue. No fevers, chills, night sweats. Respiratory: She has some dyspnea on exertion. Cardiovascular: No chest pain, palpitations. GI: As above. Hematologic/Oncologic: As above. PHYSICAL EXAMINATION: She is well-appearing 77-year-old female, obese with a BMI of 35, height 5 feet 7 inches, weight 223 pounds. Temperature 98.8, pulse 84, respirations 16, blood pressure 108/46, O2 sat is 97% on room air. Head is normocephalic and atraumatic. Sclerae anicteric. Mucous membranes are moist. No otorrhea. No rhinorrhea. Neck is symmetrical. Trachea is midline. Lungs are clear to auscultation bilaterally without wheezes, rales, or rhonchi. Heart is regular, S1, S2. No murmurs are appreciated. Abdomen is obese. There is a right paramedian scar. Bowel sounds are present. Soft, nontender. Palpated no masses or hernias. Extremities are warm. LABORATORY DATA: Reviewed. WBCs are 2.2, hemoglobin 9.0, hematocrit 26, platelets 142. Chemistries are notable for normal electrolytes on 02/28/18 with a glucose of 130, BUN of 19, and creatinine of 0.84. Transaminases were normal. Pathology: Biopsies on the colon revealed tubular adenoma in the cecum with no high-grade dysplasia or latency. She also had a serrated adenoma at 15 cm. IMPRESSION: A 77-year-old female with metastatic non-small cell lung cancer with stable disease, felt by Oncology to be reasonable candidate for surgery. She does have multiple other medical problems and had presented to the hospital with lower GI bleed, found to be secondary to a cecal mass, which is not amenable to endoscopic interventions. She also has history of deep venous thrombosis/pulmonary embolism, for which she has been on anticoagulation. PLAN/RECOMMENDATIONS: I discussed the findings with the patient, her daughter, and who accompanied her. I discussed the fact that surgery seems to be reasonable option for her bleeding right colon mass. She has to be off the Xarelto and it is advisable she have an IVC filter placed. Plan will be to place IVC filter on 03/03/18. Subsequently, we will plan on open right colectomy to address the bleeding cecal mass in the coming week as operating room time permits. The patient may be able to be discharged home in the interim. [facility] will follow up with her on 03/03/18 to further coordinate plans. [id number]/[facility] #: [id number] [place]
--- NOTE | 2018-03-03 04:20 | PRO ---
CC: Dr. Luciano; Dr. Dr. Hodge. PROCEDURE REPORT: DATE OF PROCEDURE: 03/01/18 PROCEDURE: Colonoscopy. INDICATION: Hematochezia. REFERRING PHYSICIAN: Dr. Luciano. MEDICATIONS GIVEN: 50 mcg IV fentanyl, 6 mg IV Versed. DESCRIPTION OF PROCEDURE: After the colonoscopy procedures, including the risks , benefits, and alternatives, not limited to perforation, surgery, and/or were explained to Mrs. Crowe, written consent was then obtained. IV medication was given and a rectal exam was performed. It was unremarkable. An Olympus gastroscope was then inserted into the patient's rectum and advanced very carefully through the entirety of the colon and into the distal terminal ileum. Distal few centimeters of the terminal ileal mucosa were unremarkable. Scope was then withdrawn into the cecal base. Careful and thorough inspection within the cecal base did reveal a medium-sized polyp, removed with snare polypectomy, adequate hemostasis was achieved and specimen was retrieved. Scope was then withdrawn through the remainder of the colon. No abnormalities were seen until I reached 15 cm from the anal verge where there was an extremely large pedunculated polyp with a very wide stalk. It was approximately 3 to 4 cm in size. I did not feel I could safely remove it. It did have a very large blood vessel coursing through the stalk. I did inject some mucosal tattoo ink around the area to gloria it for further evaluation and biopsies were obtained. The scope was then withdrawn from the patient. She tolerated the procedure well and was returned to the recovery room in stable condition. IMPRESSION: 1. Complete colonoscopy into the terminal ileum with submucosal tattoo ink injection, snare polypectomy and biopsy polypectomy. 2. Cecal polyp, status post snare polypectomy. 3. Extremely large recto-sigmoid colon polyp, status post tattoo marking and biopsy, this will need to be addressed by surgical services. 4. I will follow up on all the biopsies. We will report back to the patient at that time. [id number]/[facility] #: [id number] [facility] HOSPITALChristiano
[2018-03-03] MEDS: Levothyroxine TAB* 112 MCG TAB PO SCH (05:42)
[2018-03-03 06:04] LABS: ABS Basophils 0 10^3/ul (0-0.2); ABS Eosinophils 0.1 10^3/ul (0-0.6); ABS Lymphocytes 0.6 10^3/ul (1.0-4.8); ABS Monocytes 0.1 10^3/ul (0-0.8); ABS Neutrophils 1.8 10^3/ul (1.5-7.7); ABS Nucleated RBC 0 10^3/ul; Eosinophil % 2.5 % (0-6); Hematocrit 25 % (35-47); Hemoglobin 8.7 g/dl (12.0-16.0); Lymphocyte % 23.7 % (25-47); Mean Corpuscular HGB Conc 35 g/dl (31-36); Mean Corpuscular Hemoglobin 33 pg (27-31); Mean Corpuscular Volume 95 fL (80-97); Mean Platelet Volume 7.7 um3 (7.4-10.4); Nucleated Red Blood Cells % 0.1; Platelet Count 125 10^3/ul (150-450); Red Blood Count 2.63 10^6/ul (4.00-5.40); Red Cell Distribution Width 17 % (10.5-15); White Blood Count 2.7 10^3/ul (3.5-10.8)
[2018-03-03 06:22] LABS: EGFR Non-African American 70.9 (>60)
[2018-03-03] MEDS: Atorvastatin* 10 MG TAB PO SCH (07:34)
[2018-03-03] MEDS: glipiZIDE TAB.XL* 5 MG PO SCH (07:34)
[2018-03-03] MEDS: Lisinopril TAB* 10 MG PO SCH (07:34)
[2018-03-03] MEDS: Metoprolol Succinate XL TAB* 50 MG PO SCH (07:34)
--- NOTE | 2018-03-03 11:22 | PN ---
Progress Note - Progress Note Date of Service: 03/03/18 SOAP: Subjective: [No events overnight. Feeling well. IVC filter placement today.] Objective: [ Laboratory Results - last 24 hr 03/02/18 03/03/18 03/03/18 12:22 05:40 05:40 WBC 2.7 L RBC 2.63 L Hgb 8.7 L Hct 25 L MCV 95 MCH 33 H MCHC 35 RDW 17 H Plt Count 125 L MPV 7.7 Neut % (Auto) 68.1 Lymph % (Auto) 23.7 L [place] % (Auto) 5.4 Eos % (Auto) 2.5 Baso % (Auto) 0.3 Absolute Neuts (auto) 1.8 Absolute Lymphs (auto) 0.6 L Absolute Monos (auto) 0.1 Absolute Eos (auto) 0.1 Absolute Basos (auto) 0 Absolute Nucleated RBC 0 Nucleated RBC % 0.1 Sodium 138 Potassium 4.0 Chloride 104 Carbon Dioxide 31 Anion Gap 3 BUN 13 Creatinine 0.79 Est GFR ( Amer) 85.8 Est GFR (Non-Af Amer) 70.9 BUN/Creatinine Ratio 16.5 Glucose 140 H POC Glucose (mg/dL) 157 H Calcium 9.0 Total Bilirubin 0.60 AST 29 ALT 27 Alkaline Phosphatase 73 Total Protein 5.5 L Albumin 3.2 Globulin 2.3 Albumin/Globulin Ratio 1.4 03/03/18 07:40 WBC RBC Hgb Hct MCV MCH MCHC RDW Plt Count MPV Neut % (Auto) Lymph % (Auto) Kings[place] % (Auto) Eos % (Auto) Baso % (Auto) Absolute Neuts (auto) Absolute Lymphs (auto) Absolute Monos (auto) Absolute Eos (auto) Absolute Basos (auto) Absolute Nucleated RBC Nucleated RBC % Sodium Potassium Chloride Carbon Dioxide Anion Gap BUN Creatinine Est GFR ( Amer) Est GFR (Non-Af Amer) BUN/Creatinine Ratio Glucose POC Glucose (mg/dL) 147 H Calcium Total Bilirubin AST ALT Alkaline Phosphatase Total Protein Albumin Globulin Albumin/Globulin Ratio Atorvastatin Calcium (Lipitor*) 10 mg PO QAM [facility] Last Admin: 03/03/18 07:34 Dose: 10 mg Glipizide (Glucotrol Xl*) 5 mg PO QAM [facility] Last Admin: 03/03/18 07:34 Dose: 5 mg Heparin Sodium (Porcine) (Heparin Flush Port (Ivad)) 5 ml FLUSH DAILY [facility]; Protocol Last Admin: 03/03/18 07:44 Dose: 5 ml Levothyroxine Sodium (Synthroid Tab*) 112 mcg PO 0600 [facility] Last Admin: 03/03/18 05:42 Dose: 112 mcg Lisinopril (Prinivil Tab*) 30 mg PO QAM [facility] Last Admin: 03/03/18 07:34 Dose: 30 mg Metoprolol Succinate (Toprol Xl Tab*) 50 mg PO DAILY [facility] Last Admin: 03/03/18 07:34 Dose: 50 mg Vital Signs: Temp Pulse Resp BP Pulse Ox 99.0 F 83 18 113/42 96 03/03/18 07:41 03/03/18 07:41 03/03/18 07:45 03/03/18 07:41 03/03/18 07:41 Exam: Gen: Well appearing 77 yo female in NAD HEENT: MMM CV: RRR, no m/r/g Resp: lungs CTA Abd: soft, nonTTP Ext: trace edema LLE, non RLE ] Assessment: [77 yo female with metastatic NSCLC and h/o DVT on Xarelto with DM who was noted to be progressively anemic, admitted for GI bleed. Upper endoscopy completed without obvious source of bleeding. Colonoscopy demonstrated a 4cm friable polyp. Plan: [1. GI bleed - stable - likely from friable polyp identified - biopsy results are benign, but due to its size and bleeding it needs to be resected - partial colectomy will be completed early next week likely 2. NSCLC - on maintenance Pemetrexed, tolerating very well 3. DM 4. H/o DVT - Xarelto on hold - requires IVC filter, to be placed today by general surgery Dispo: IVC filter today, likely home following procedure and will return next week for hemicolectomy]
[2018-03-03] MEDS ORDERED: Midazolam* 1 MG/ML 2 ML VIAL (2 MG) ONE (15:23)
[2018-03-03] MEDS ORDERED: fentaNYL* 50 MCG/ML 2 ML VIAL (100 MCG VIAL) ONE (15:23)
[2018-03-03] MEDS ORDERED: Iohexol 180 (CONTRAST) 10 ML SDV IV ONE (16:12)
[2018-03-03] MEDS ORDERED: Heparin DIALYSIS ONLY(*) 1,000 UNITS/ML VIAL ONE (16:12)
[2018-03-03] MEDS ORDERED: Lidocaine 1% INJ* 10 MG/ML 30 ML SDV ONE (16:12)
[2018-03-03] MEDS ORDERED: Heparin 2 UNITS/ML IVPREMIX* 1,000 ML IV ONE (16:18)
[2018-03-03] MEDS ORDERED: Propofol* 10 MG/ML 20 ML BTL IV PUSH ONE (16:59)
[2018-03-03] MEDS ORDERED: Ondansetron INJ* 2 MG/ML VIAL IV PRN (17:20)
[2018-03-03] MEDS ORDERED: fentaNYL* 50 MCG/ML 2 ML VIAL (100 MCG VIAL) IV PRN (17:20)
[2018-03-03] MEDS ORDERED: HYDROcodone/ACETAMIN 5-325 MG* 1 TAB PO PRN (17:20)
[2018-03-03] MEDS ORDERED: DiMENhydriNATE IV* 50 MG/ML VIAL IV PUSH PRN (17:20)
[2018-03-03] MEDS ORDERED: Naloxone* 0.4 MG/ML 1 ML VIAL IV PRN (17:20)
[2018-03-03] MEDS ORDERED: Acetaminophen TAB* 325 MG PO PRN (17:20)
--- NOTE | 2018-03-03 17:38 | PN ---
Progress Note - Progress Note Date of Service: 03/03/18 SOAP: Subjective: She offers no complaint. Waiting for procedure. Objective: Vital Signs Temp 98.1 F 03/03/18 11:26 Pulse 78 03/03/18 11:26 Resp 18 03/03/18 11:26 BP 106/42 03/03/18 11:26 Pulse Ox 97 03/03/18 11:26 Intake & Output 03/02/18 03/03/18 03/03/18 18:59 06:59 18:59 Intake Total 620 400 250 Output Total 300 Balance 620 100 250 Intake: Oral 620 400 250 Output: Urine 300 Other: Estimated Void Medium Medium Medium # Bowel Movements 0 # Voids 6 1 6 Colonoscopy report/pathology reviewed: Large polyp is at 15 cm and serrated adenoma; Cecal polyp is tubular adenoma. Assessment: Stage IV lung ca; DVT/PE; LGIB due to Rectosigmoid polyp -- stable. Plan: Discussed my mistake in identifying the bleeding lesion in the cecum as opposed to the rectosigmoid junction. Given the distal location of the site of presumed GIB we discussed the recommendation for a more aggressive endoscopic attempt at excision. This was also discussed with Dr. Ryan and Dr. Luciano. It was decided that she could be referred to [facility] for this as an outpt. Dr. Ryan agreed to make the referral. We will cancel the plan for surgery on Thursday. She will proceed with the IVC filter.
--- NOTE | 2018-03-03 17:44 | BRIEFOPN ---
Brief Operative Note - Surgery Procedures: Pre-OP Diagnoses: Gi bleed, PE Post-op Diagnosis: same Procedure: insertion of IVC filter Surgeon: Ant Asst: none Anethesia: local MAC EBL: minimal IVF: crystalloid Specimen: none Drains: none
[2018-03-03 18:25] VITALS: BP 104/58
--- NOTE | 2018-03-04 00:12 | DS ---
CC: Dr. Hodge; Dr. James; Dr. Willie Ryan * DISCHARGE SUMMARY: DATE OF ADMISSION: 02/25/18 DATE OF DISCHARGE: 03/03/18 PRIMARY CARE PROVIDER: Dr. Hodge. PRIMARY ONCOLOGIST AND ATTENDING PHYSICIAN: Dr. Kathy Luciano.* (DICTATED BY LORRIE NELSON) CONSULTING FOLDING MACHINE OPERATOR: Dr. Saul/Dr. Ryan. CONSULTING GENERAL SURGEON: Dr. James. DISCHARGING PROVIDER: LORRIE Nelson PRIMARY DISCHARGE DIAGNOSES: 1. Lower gastrointestinal bleed secondary to large friable polyp in the sigmoid colon. 2. Acute blood loss anemia, status post transfusion of 1 unit of packed red blood cells. 3. Inferior vena cava filter placement. SECONDARY DISCHARGE DIAGNOSES: 1. Metastatic lung cancer with very stable disease, on maintenance pemetrexed therapy. 2. Zqb-[id number]-[id number] diabetes. 3. Hypothyroidism. 4. History of deep venous thrombosis and pulmonary embolism, previously anticoagulated on Xarelto. DISCHARGE MEDICATIONS: 1. Folic acid 1 mg p.o. daily. 2. Glipizide 5 mg p.o. daily. 3. Levothyroxine 112 mcg p.o. daily. 4. Lisinopril 30 mg p.o. daily. 5. Metoprolol succinate 50 mg p.o. daily. 6. Omeprazole 20 mg p.o. daily. 7. Simvastatin 20 mg p.o. daily. Medication changes: Stop Xarelto. HOSPITAL IMAGING: None. PATHOLOGY: Large polyp at 15 cm is a serrated adenoma without high-grade dysplasia or other signs of malignancy and polyp from the cecum is tubular adenoma without high-grade dysplasia. HOSPITAL COURSE: This is a very pleasant 77-year-old female with history of metastatic lung cancer who has done remarkably well with very a little burden of disease, on maintenance pemetrexed therapy as well as prior DVT and PE who has been anticoagulated on Xarelto for approximately 1 year as well as non- insulin-dependent diabetes, hypertension, and hyperlipidemia, who had a rather precipitous decline in her hemoglobin. The patient initially provided some mixed history in terms of stool changes, at one point admitted to some dark and black looking stool, but rectal exam that was eventually completed at her primary care provider's office demonstrated bright red blood per rectum and the patient was subsequently referred for admission for GI bleed. The patient received 1 unit of packed red blood cells and hemoglobin remained relatively stable following that. Her Xarelto was held. She underwent upper endoscopy, which was unrevealing for source of her bleeding. Due to the documented bright red blood seen by her primary care provider, lower endoscopy was recommended and she underwent prep and colonoscopy by Dr. Willie Ryan. There was a large friable pedunculated polyp at 15 cm that measured approximately 4 cm in diameter. Biopsies were taken and benign, found to be serrated adenoma. One additional polyp at the cecum, which was small and benign appearing was tubular adenoma also benign on pathology. Due to its large size and friable nature, recommendation for colon resection was made and then the patient met with General Surgery. Due to its location and the patient's body habitus and prior surgeries in the area, this was thought to be a high risk procedure and recommendation was made for referral to [facility] at [place] possibly for an endoscopic approach to resection. Prior to discharge, the patient underwent IVC filter placement and she will remain off the anticoagulation until the polyp is resected. DISPOSITION AND FOLLOWUP PLAN: The patient is being discharged to home with medications changes as outlined above. IVC filter is in place. The patient has been referred to [facility] at [place] per Dr. Ryan. The patient will need to resume anticoagulation with IVC filter retrieval following polyp resection. The patient has followup in oncology office in approximately 2 weeks. LORRIE NELSON [id number]/[facility] #: [id number] [place]
--- NOTE | 2018-03-04 07:03 | RAD ---
INDICATION: IVC filter placement. COMPARISON: Comparison is made with a prior CT of the abdomen and pelvis from February 02, 2018. TECHNIQUE: 17 seconds of intermittent fluoroscopic guidance were provided and 2 spot films of the lower abdomen over the midline were obtained in the operating room. FINDINGS: The films demonstrate placement of an inferior vena cava filter which projects approximately at the L3 level centered to the right of midline. IMPRESSION: INTRAOPERATIVE CONTROL FILMS. CPT II Codes: G9500
--- NOTE | 2018-03-05 03:56 | OP ---
CC: Dr. Kathy Luciano; Dr. Viola Hodge * DATE OF OPERATION: 03/03/18 - ROOM #403 DATE OF : 44 SURGEON: Dr. Iván Cain PROVIDER RELATIONS CONSULTANT: None. ANESTHESIOLOGIST: Dr. Brady. ANESTHESIA: Local MAC anesthesia. PRE-OP DIAGNOSIS: Gastrointestinal bleed and remote diagnosis of pulmonary embolus. POST-OP DIAGNOSIS: Gastrointestinal bleed and remote diagnosis of pulmonary embolus. OPERATIVE PROCEDURE: Insertion of inferior vena cava filter. BLOOD LOSS: Minimal blood loss. IV FLUIDS: Minimal crystalloid fluid given. SPECIMENS: None. INDICATIONS: Ms. Crowe is a 77-year-old female whose chart I reviewed, and I discussed the recommendation to the hematology/oncology department of IVC filter placement. The patient recently diagnosed with GI bleed and has been on longstanding blood thinners for PE secondary to a DVT many years ago. The patient does not have DVT at this time, but the intention was for lifelong anticoagulation. The patient has history of malignancy and may have a second or metastatic lesion in the colon that is currently being worked up. I agree with recommendation of IVC filter placement. I outlined the details of the procedure going over the risks, benefits, and alternatives to the patient and family. We spoke about the possible complications which include but not limited to bleeding, infection, need for removal of the filter, migration of the filter, perforation of the vein, misplacement of the filter. We spoke about the alternatives of anticoagulation and the attempt to restarting anticoagulation when the patient has resolved the GI bleed. I also discussed the importance of having filter removed at the earliest time when it is no longer necessary. In Ms. Crowe's case, that would be when the patient is able to go back on anticoagulation. The patient's questions were answered and consent was signed. DESCRIPTION OF PROCEDURE: The patient was brought to the operating room, placed on the operating table in the supine position. General sedation was given. The patient's left and right groins were clipped of hair and prepped and draped in a standard surgical fashion. A time-out was performed. The right common femoral vein was accessed and under fluoroscopy, wire inserted , a dilator was inserted over the wire and a long 180 cm straight wire was then inserted under fluoroscopy into the upper inferior vena cava. Next, a clip type filter placement system was opened up. The introducer with the dilator was then inserted under fluoroscopy over the wire. We marked it as appropriate place at the third lumbar spine and removed the dilator keeping the wire in place. Next, the filter was attached in an appropriate manner and was pushed in the appropriate fashion to the tip of the catheter and the catheter was backed out appropriately under fluoroscopy to assure the placement. The wire was then backed out slowly under fluoroscopy. There was no movement of the filter and it remained in appropriated orientation. We then removed all delivery systems and held pressure for 5 minutes at the groin and placed the dressing at the site. The patient tolerated the procedure well, was transferred to the PACU in stable condition. I recommend the patient be evaluated either by me or vascular surgeon or interventional radiology for removal of the catheter when it is no longer necessary. This can be retrieved in an appropriate fashion through interventional radiology department or from vascular surgery department. [id number]/CPS #: [id number] MTDD
== END 2018-03-03 18:59 | disposition home or self-care (01) | DRG 357 ==
LOC: MED 15:29 → OBSVTOIN 15:30
PROVIDERS: ADMIT Internal Medicine Hematology & Oncology; ATTEND Internal Medicine Hematology & Oncology
PROC: 30233N1 Transfusion of Nonautologous Red Blood Cells into Peripheral Vein, Percutaneous Approach (ICD-10-PCS; principal; 2018-02-26)
PROC: 0DJ08ZZ Inspection of Upper Intestinal Tract, Via Natural or Artificial Opening Endoscopic (ICD-10-PCS; 2018-02-26)
PROC: 0DBH8ZZ Excision of Cecum, Via Natural or Artificial Opening Endoscopic (ICD-10-PCS; 2018-03-01)
PROC: 0DBN8ZX Excision of Sigmoid Colon, Via Natural or Artificial Opening Endoscopic, Diagnostic (ICD-10-PCS; 2018-03-01)
PROC: 06H03DZ Insertion of Intraluminal Device into Inferior Vena Cava, Percutaneous Approach (ICD-10-PCS; 2018-03-03)
DX: D12.7 Benign neoplasm of rectosigmoid junction (principal); D62 Acute posthemorrhagic anemia; C34.92 Malignant neoplasm of unspecified part of left bronchus or lung; C79.9 Secondary malignant neoplasm of unspecified site; K92.2 Gastrointestinal hemorrhage, unspecified; E11.9 Type 2 diabetes mellitus without complications; E78.5 Hyperlipidemia, unspecified; I10 Essential (primary) hypertension; K29.90 Gastroduodenitis, unspecified, without bleeding; K26.9 Duodenal ulcer, unspecified as acute or chronic, without hemorrhage or perforation; D12.0 Benign neoplasm of cecum; K29.70 Gastritis, unspecified, without bleeding; E66.9 Obesity, unspecified; R19.5 Other fecal abnormalities; Z66 Do not resuscitate; E03.9 Hypothyroidism, unspecified; Z79.84 Long term (current) use of oral hypoglycemic drugs; Z86.718 Personal history of other venous thrombosis and embolism; Z86.711 Personal history of pulmonary embolism; Z98.51 Tubal ligation status; Z87.891 Personal history of nicotine dependence; Z72.89 Other problems related to lifestyle; Z80.1 Family history of malignant neoplasm of trachea, bronchus and lung; Z80.0 Family history of malignant neoplasm of digestive organs; Z80.42 Family history of malignant neoplasm of prostate; Z88.8 Allergy status to other drugs, medicaments and biological substances; Z68.35 Body mass index [BMI] 35.0-35.9, adult
CPT/HCPCS: 1036F; 1126F; 36415; 36591; 37191; 76000; 80053; 82272; 85025; 85610; 85730; 86850; 86900; 86901; 86922; 87077; 88305; 96372; 96409; 99156; 99157; 99213; 99215; 99222; A9270-GY; C1880; G0463; G8427; J1642; J1644; J2250; J2704; J3010; J3420; J9305; P9040

== ENCOUNTER 2018-09-27 16:46 | Observation (INO) | payer MEDICARE, BC ==
--- OUTSIDE RECORDS SUMMARY | 2018-09-27 17:53 | XMS REPORT | Continuity of Care Document ---
:1940 External Reference #:[id number] Author Name Covert, Deborah Care Team Providers Name Role Phone Kathy Luciano M.D. Primary Care Physician Unavailable Payers Date Identification Numbers Payment Provider Subscriber Policy Number: [id number] Medicare Chrissy Graham PayID: [id number] [address] [place] [address] Policy Number: [id number] [facility] Chrissy Graham Group Name: [employer] [address] [address] PayID: [id number] [place] [address] Advance Directives Description No Information Available Problems Date Description Provider Status Onset: 08/25/2018 Pulmonary embolism Davis Marquez M.D. Active Family History Date Family Member(s) Observation Comments Father Cancer Lung Mother Lung/Brain Cancer Siblings 1 Brother heart valve replaced/Gout/Thryoid issues is 82/83 years old Social History Type Date Description Comments Sex Unknown Marital Status Lives With Family Occupation Not working Tobacco Use Start: Unknown Quit July 2016 ETOH Use Denies alcohol use Tobacco Use Start: Unknown End: Patient is a former Unknown smoker Recreational Drug Use Denies Drug Use Tobacco Use Start: Unknown Heavy tobacco smoker 1PPD x 50/55 years (more than 10 cigarettes/day) Smoking Status Reviewed: 08/25/18 Heavy tobacco smoker 1PPD x 50/55 years (more than 10 cigarettes/day) Exercise Type/Frequency Does not exercise Allergies, Adverse Reactions, Alerts Date Description Reaction Status Severity Comments 10/23/2016 Strawberries Difficulty breathing, Difficulty Active swallowing 10/23/2016 Fosamax Active myalgia Medications Medication Date Status Form Strength Qnty SIG Indications Ordering Provider Nebulizer 10/24/19 Active Kit 1unit use as J44.9 Jojo Compressor/Dualfi 17 s directed Delbert lter/7' Tubing/Aerosol T/Mthpiece Glipizide XL 10/23/19 Active Tablets 5mg 1 by Unknown 17 ER 24HR mouth every day Levothyroxine 10/23/19 Active Tablets 112mcg 1 by Unknown Sodium 17 mouth every day Lisinopril 10/23/19 Active Tablets 30mg 1 by Unknown 17 mouth every day Metoprolol 10/23/19 Active Tablets 50mg 2 by Unknown Succinate ER 17 ER 24HR mouth every day Simvastatin 10/23/19 Active Tablets 20mg 1 by Unknown 17 mouth every day Folic Acid Active Tablets 1mg 1 by Unknown 00 mouth every day Prochlorperazine Active Tablets 10mg as needed Unknown Maleate 00 Ondansetron HCL Active Tablets 4mg one by Unknown 00 mouth every 8 hours as needed for nausea Dexamethasone Active as Unknown 00 directed Stiolto Respimat 10/24/19 Hx Aerosol 2.5-2.5mc 12gm 2 puffs J44.9 Jojo 17 - g/Act daily Delbert, Unknown Duoneb 10/24/19 Hx Solution 0.5-2.5(3 540ml 1 unit J44.9 Jojo 17 - )mg/3ML nebl Delbert, Unknown every 6 MD hours as needed Oxygen 10/24/19 Hx Misc 1unit please J44.9 Jojo 17 - s use o2 at [facility], 06/08/20 2l/min 18 during exertion Hydrochlorothiazi 10/23/19 Hx Tablets 25mg 1 by Unknown de 17 - mouth Unknown every day Coumadin 10/23/19 Hx Tablets 5mg Unknown 17 - Unknown Allopurinol Hx Tablets 100mg 1 by Unknown 00 - mouth Unknown every day Methylprednisolon Hx TBPK 4mg take as Unknown e 00 - directed Unknown Omeprazole Hx Capsules 20mg 1 by Unknown 00 - DR mouth Unknown every day Xarelto Hx Tablets 20mg 1 by Unknown 00 - mouth Unknown every day Immunizations Description No Information Available Vital Signs Date Vital Result Comment 08/25/2018 8:26am Height 67 inches 5'7" Weight 215.00 lb Heart Rate 62 /min BP Systolic Sitting 130 mmHg BP Diastolic Sitting 84 mmHg Respiratory Rate 18 /min BMI (Body Mass Index) 33.7 kg/m2 06/07/2018 10:58am Height 67 inches 5'7" Weight 213.00 lb Heart Rate 66 /min BP Systolic Sitting 130 mmHg BP Diastolic Sitting 76 mmHg Respiratory Rate 18 /min Body Temperature 98.1 F BMI (Body Mass Index) 33.4 kg/m2 05/15/2017 10:52am Height 67 inches 5'7" Weight 205.00 lb Heart Rate 60 /min BP Systolic 144 mmHg BP Diastolic 84 mmHg Respiratory Rate 16 /min Body Temperature 97.3 F BMI (Body Mass Index) 32.1 kg/m2 10/30/2016 10:24am Height 67 inches 5'7" Weight 194.00 lb Heart Rate 71 /min BP Systolic Sitting 138 mmHg BP Diastolic Sitting 80 mmHg Respiratory Rate 16 /min O2 % BldC Oximetry 94 % BMI (Body Mass Index) 30.4 kg/m2 10/23/2016 11:37am Height 67 inches 5'7" Weight 194.00 lb Heart Rate 74 /min BP Systolic Sitting 136 mmHg BP Diastolic Sitting 78 mmHg Respiratory Rate 18 /min O2 % BldC Oximetry 92 % BMI (Body Mass Index) 30.4 kg/m2 Results Test Date Facility Test Result H/L Range Note Laboratory test 08/09/2018 [facility] Cytology SEE RESULT [address] [employer] [place] [address] [phone] Inr/Protime 08/09/2018 [facility] Inr 0.94 N 0.77-1.[address] [place] [address] [phone] Laboratory test 08/09/2018 [facility] Partial 29.6 seconds N 26.0-36.[address] [place] [address] PTT [phone] Platelet Count 08/09/2018 [facility] Platelet Count 117 10^3/uL Low 150-[address] [place] [address] [phone] Mean Platelet Volume 8.0 fL N 7.4-10.4 Laboratory test 05/14/2018 [facility] Surgical SEE RESULT [address] [place] [address] [phone] Laboratory test 03/01/2018 [facility] Surgical SEE RESULT [address] Interface [place] [address] [phone] 1 SEE RESULT BELOW Name: MICHAEL GRAHAM : [address]: Kathy Luciano MD Acct: [id number] Unit: [id number] AGE: 78 Location: Re08/09/18 SEX: F Status: REG REF SPEC: [id number] RAQUEL: 08/09/18-1230 [facility] DR: Kathy Luciano MD REQ: [id number] RECD: 08/09/18-131 STATUS: CHARLA ELLIOTT DR: Davis Marquez MD _ ORDERED: FNA-IMG GUID BX, LEVEL 4/2, CYTO ADEQ-1ST P, IMMUNO-FIRST, SPEC ST NON-O ADDENDUM Addendum: An immunohistochemical stain for Arginase was performed with appropriate controls on formalin fixed cell block material is positive. The previously rendered interpretation remains unchanged. Addendum Signed (signature on file) Jhonny Cade MD 1008 FINAL DIAGNOSIS 1. Liver, right lower lobe, Ultrasound guided fine needle aspiration: -- Benign liver tissue with mild architectural disorder. See comment. -- No evidence of malignancy identified. 2. Liver, Ultrasound guided core biopsy: -- Benign liver tissue with mild architectural disorder. See comment. -- No evidence of malignancy identified. Comment: The aspirate smears and formalin fixed cell block and core biopsies demonstrate similar findings both demonstrates CONTINUED ON NEXT PAGE DEPARTMENT OF PATHOLOGY, [address] [place] [address] Jhonny Cdae M.D. Director [facility] # [id number] RUN DATE: 08/16/18 [facility] LAB LIVE PAGE 2 Patient: MICHAEL GRAHAM [id number] (Continued) SPECIMEN COMMENTS (Continued) hepatocellular tissue with mild small cell change, mild nuclear pleomorphism, mild to moderate steatosis and bile pigmentation. No bile ducts are identified. A reticulin stain performed with appropriate controls on the core biopsy demonstrates well-preserved reticulin architecture with mildly altered architecture with minimally expanded trabeculae. No evidence of metastatic carcinoma is identified. These findings likely represents a regenerative nodule. Metastatic neoplasia adjacent to the tissue examined not represented in this material cannot be entirely excluded. Clinical and radiographic correlation is recommended. Appropriate follow-up is suggested. Additional studies may be considered as clinically warranted. This case was communicated to Dr. Luciano on 08/12/18 at approximately 3:30 PM. A cell block was prepared in the evaluation of this specimen. Smears and cell block reveal similar findings. #1. LIVER - US GUIDED LIVER FINE NEEDLE ASPIRATION, #2. LIVER - US GUIDED CORE BIOPSY CLINICAL HISTORY 1.8 x 1.4 x 1.9 cm right lower lobe liver lesion. Lung cancer 2017, colon cancer 2018. IMMEDIATE INTERPRETATION 1. Pass 1-4 adequate 2. Core biopsy CONTINUED ON NEXT PAGE DEPARTMENT OF PATHOLOGY, [address] [place] [address] Jhonny Cade M.D. Director [facility] # [id number] RUN DATE: 08/16/18 [facility] LAB LIVE PAGE 3 Patient: MICHAEL GRAHAM [id number] (Continued) GROSS DESCRIPTION (Continued) GROSS DESCRIPTION #1) Ultrasound guided, fine needle aspiration x 4 passes with 5 Alcohol fixed slide(s), 2 Alcohol fixed slide(s), needle rinse in formalin for cell block. #2) Core biopsy. Signed by and Reported on: Jhonny Cade MD 1616 END OF REPORT DEPARTMENT OF PATHOLOGY, [address] [place] [address] Jhonny Cade M.D. Director [facility] # [id number] 2 SEE RESULT BELOW Name: CHRISSY GRAHAM : [address]: Diana Vazquez Acct: [id number] Unit: [id number] AGE: 78 Location: [facility] Re05/14/18 SEX: F Status: REG REF SPEC: [id number] RAQUEL: 05/14/18- SUBM DR: Diana Vazquez MD REQ: [id number] RECD: 06/11/18-7148 STATUS: CHARLA ELLIOTT DR: Ray Valerio MD _ ORDERED: CONSULT SLIDES FINAL DIAGNOSIS Colon, sigmoid, polypectomy: --Focal well-differentiated invasive carcinoma invading into stalk of villoglandular adenoma with high-grade dysplasia (adenoma at least 3 cm). See comment. -- Tumor invades focally through muscularis mucosa. No muscularis propria identified. -- Cauterized stalk margin is free of invasive carcinoma and adenomatous change in slides examined. See comment. -- TNM histopathologic stage pTI NX M N/A Comment: Only 2 of eights hematoxylin and eosin stained slides are available for review. One of these slides (A6) demonstrates a focus of high-grade dysplasia associated with well-differentiated invasive carcinoma with invasion into the polyp stalk and focally through the muscularis mucosal layer. There is no muscularis propria identified within the polyp stalk. Separate slide A7 demonstrates the cauterized polyp stalk margin. In the cauterized margin in this block is free of invasive carcinoma and adenomatous change. There is no invasive carcinoma identified in this block. Immunohistochemical stains for MSH 2, MSH 6, PMS 2 and mL H1 with appropriate controls are reviewed. Expression of these markers is preserved in the focus of invasive carcinoma for all 4 stains. CONTINUED ON NEXT PAGE DEPARTMENT OF PATHOLOGY, [address] [place] [address] Jhonny Cade M.D. Director [facility] # [id number] RUN DATE: 06/14/18 [facility] LAB LIVE PAGE 2 Patient: CHRISSY GRAHAM [id number] (Continued) PRE-OPERATIVE DIAGNOSIS (Continued) PRE-OPERATIVE DIAGNOSIS Adenocarcinoma of colon GROSS DESCRIPTION Received are 6 glass slides including 2 hematoxylin and eosin stained slides and 4 immunohistochemistry stain slides (A6 and A7 labeled with the patient's name and 18?[id number] [facility] labs. Accompanying these slides is a pathology report labeled with the patient's name and 18?SSP 20374 [facility] signed by Dr. Selma Alves 05/18/2018. Signed by and Reported on: Jhonny Cade MD 09/27 1123 END OF REPORT DEPARTMENT OF PATHOLOGY, [address] [place] [address] Jhonny Cade M.D. Director [facility] # [id number] 3 SEE RESULT BELOW Name: SANTOSCHRISSYMICHEL : [address]: Kathy Luciano MD Acct: [id number] Unit: [id number] AGE: 77 Location: [facility] 403-01 Re02/25/18 SEX: F Status: ADM IN SPEC: [id number] RAQUEL: 03/01/18-[address] [facility] [address]: Willie Ryan MD REQ: [id number] RECD: 03/01/18 STATUS: CHARLA ELLIOTT DR: Viola Luciano MD _ ORDERED: LEVEL 4/2 FINAL DIAGNOSIS 1. Colon, cecum, biopsy: -- Tubular adenoma. -- No high grade dysplasia or malignancy. 2. Colon, at 15 cm, biopsy: -- Traditional serrated adenoma. -- No high-grade dysplasia or malignancy. POST-OPERATIVE DIAGNOSIS Colonoscopy: to terminal ileum; cecal polyp ? snare; large 3 ? 4 cm polyp at 15 cm with tattoo and biopsy GROSS DESCRIPTION 1. The specimen is received in formalin labeled, Cecal Polyp, and consists of a 0.6 x 0.6 by up to 0.2 cm aggregate of agarwal-yellow irregular to polypoid soft tissue fragments, which is entirely submitted in one cassette. 2. The specimen is received in formalin labeled, Biopsy Colon Polyp at 15 cm, and consists of a 0.7 x 0.5 x 0.2 cm aggregate of agarwal-pink irregular to polypoid soft tissue fragments, which is entirely submitted in one cassette. Signed by and Reported on: Diana Vazquez MD 03/02/18 1223 END OF REPORT DEPARTMENT OF PATHOLOGY, [address] [place] [address] Jhonny Cade M.D. Director [facility] # [id number] Procedures Date Code Description Status 05/14/2018 29246204 Colonoscopy Completed 03/03/2018 52985 Insertion Intravasular Vena Cava Filter,Endovascular Completed Approach 03/01/2018 44820344 Colonoscopy Completed 05/21/2017 10455 Fluoroscopic Guidance For Cent Completed 05/21/2017 53935 Insertion Tunneled Cent Venous Cathr W Subcut Port 5 Completed Yrs Or Oldr 11/04/2016 24477 Plethysmography Determination Lung Volumes & Per Airway Completed Resist 11/04/2016 10674 Pulmonary Function><Bronchodil Completed 10/23/2016 27110 Pulmonary Stress Test Simple Completed Encounters Type Date Location Provider Dx Diagnosis Office Visit 06/07/2018 [facility] Ben[facility] James, C18.9 Malignant neoplasm 10:30a [facility], FACS of colon, unspecified C34.90 Malignant neoplasm of unsp part of unsp bronchus or lung Office Visit 03/02/2018 7:00a [facility] Benigno James, D37.4 Neoplasm of [facility] FACS uncertain behavior of colon K92.2 Gastrointestinal hemorrhage, unspecified C34.90 Malignant neoplasm of unsp part of unsp bronchus or lung Office Visit 05/15/2017 10:45a Surgical Eduardo Verdugo C34.90 [facility] M.D. neoplasm of unsp part of unsp bronchus or lung Office Visit 05/13/2017 4:33p [facility] Services Kathy C34.90 Malignant Of Heart Surgeon ARISTEO Luciano M.D. 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, hematpoetc and rel tissue, unsp L83 Acanthosis nigricans M10.9 Gout, unspecified Office Visit 11/06/2016 2:00p [facility] Dermatology Cali Cervantes L83 Acanthrachael LOWE nigricans Office Visit 10/30/2016 10:30a Pulmonology & Jojo J44.9 [facility] [place] obstructive [place] pulmonary disease, unspecified C34.90 Malignant neoplasm of unsp part of unsp bronchus or lung R09.02 Hypoxemia Office Visit 10/23/2016 11:35a Pulmonology And Jojo J44.9 [facility] [place] obstructive Heart Surgeon pulmonary disease, unspecified R09.02 Hypoxemia 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 Graham and her at the time of consultation:As indicated by the FDA recommendation (the reference is listed below at the end of this note), IVC filters that no longer have an indication should be considered for removal. I suspect Mrs. Graham's DVT diagnosed 01/23/17 was related to her cancer history as she does not present with any diagnosed hypercoagulable disease. Currently she is not receiving anticoagulation therapy and does not show any signs of DVT or pulmonary embolism.It is unclear to me whether the patient will restart anticoagulation therapy. I will discuss this with Dr. Luciano her report developer /oncologist.I discussed the risks and potential complications of leaving an IVC filter in that is no longer indicated including injury to the IVC, filter fracture and potential migration of filter components. The filter itself also serves as a nidus that promotes thrombus formation. Alternatively, I discussed the risks of filter removal including injury to the IVC, retroperitoneal bleeding and/or inability to remove the IVC filter.
[2018-09-27 20:15] LABS: Albumin 3.9 g/dL (3.2-5.2); Albumin/Globulin Ratio 1.6 (1-3); BUN/Creatinine Ratio 32.7 (8-20); C Reactive Protein 20.8 mg/L (<8.01); Calcium 10.2 mg/dL (8.6-10.3); EGFR African American 56.6 (>60); EGFR Non-African American 46.8 (>60); Globulin 2.5 g/dL (2-4); Potassium 4.3 mmol/L (3.5-5.0); Total Protein 6.4 g/dL (6.4-8.9)
[2018-09-27 20:31] LABS: ABS Basophils 0 10^3/ul (0-0.2); ABS Eosinophils 0 10^3/ul (0-0.6); ABS Lymphocytes 0.4 10^3/ul (1.0-4.8); ABS Monocytes 0.1 10^3/ul (0-0.8); ABS Neutrophils 3.2 10^3/ul (1.5-7.7); ABS Nucleated RBC 0 10^3/ul; Eosinophil % 0.6 %; Hematocrit 39 % (33-41); Hemoglobin 13.2 g/dL (12.0-16.0); Lymphocyte % 10.7 %; Mean Corpuscular HGB Conc 34 g/dL (31-36); Mean Corpuscular Hemoglobin 27 pg (27-31); Mean Corpuscular Volume 82 fL (80-97); Mean Platelet Volume 7.8 fL (7.4-10.4); Nucleated Red Blood Cells % 0.1; Platelet Count 201 10^3/uL (150-450); Red Cell Distribution Width 21 % (10.5-15); White Blood Count 3.7 10^3/uL (3.5-10.8)
--- NOTE | 2018-09-27 20:35 | ED ---
Abdominal Pain/Female - HPI Summary HPI Summary: The patient is a 78 y/o F presenting to [facility] accompanied by daughters with a chief complaint of sudden onset umbilical and suprapubic abd cramping for the last two days. She additionally c/o nausea, two episodes of vomiting (once yesterday and once today in the waiting room), chills, and diaphoresis. She denies dysuria, hematuria, edema, changes in urinary output, diarrhea, and CP. She spoke with her PCP, who suggested that she get evaluated because she is dehydrated and recently had chemotherapy on 09/22, although she hasn't had previous abd problems with the chemo. Surgical hx of appendectomy more than 10 years ago. No hx of renal calculi. - History of Current Complaint Chief Complaint: EDRohit Stated Complaint: SICK FOR [address] WANTED PT TO COME IN PER PT Time Seen by Provider: 09/27/18 20:19 Hx Obtained From: Patient Onset/Duration: Sudden Onset, Lasting Days - two, Still Present Timing: Days Severity Initially: Moderate Severity Currently: Moderate Pain Intensity: 0 Pain Scale Used: 0-10 Numeric Location: Suprapubic, Umbilical Radiates: No Character: Cramping Aggravating Factor(s): Nothing Alleviating Factor(s): Nothing Associated Signs and Symptoms: Positive: Diaphoresis, Nausea, Vomiting, Other: - POSITIVE: chills; NEGATIVE: edema. Negative: Chest Pain, Urinary Symptoms - no hematuria, dysuria, changes in urinary output, Diarrhea Allergies/Adverse Reactions: Allergies Allergy/AdvReac Type Severity Reaction Status Date / Time alendronate sodium Allergy See Comment Verified 09/27/18 17:34 strawberry Allergy Swelling Verified 09/27/18 17:34 Of Face,Lips,& Throat PMH/Surg Hx/FS Hx/Imm Hx Endocrine/Hematology History: Reports: Hx Diabetes - II, Hx Thyroid Disease - Hypothyroid Cardiovascular History: Reports: Hx Embolism - Pulmonary Embolism, Hx Hypercholesterolemia, Hx Hypertension Denies: Hx Pacemaker/ICD Respiratory History: Reports: Hx Lung Cancer, Hx Pulmonary Embolism GI History: Reports: Hx Gastroesophageal Reflux Disease - ON MEDICATION FOR, Hx Gastrointestinal Bleed - 02/2018, Hx Jaundice - YELLOW JAUNDICE- IN THE 1970'S History: Denies: Hx Renal Disease Musculoskeletal History: Reports: Hx Arthritis, Other Musculoskeletal History - DDD? Sensory History: Reports: Hx Cataracts Denies: Hx Contacts or Glasses, Hx Hearing Aid Opthamlomology History: Reports: Hx Cataracts Denies: Hx Contacts or Glasses Neurological History: Reports: Other Neuro Impairments/Disorders - Peripheral neuropathy of BLE Psychiatric History: Denies: Hx Panic Disorder - Cancer History Cancer Type, Location and Year: bronchus. breast Hx Chemotherapy: Yes Hx Radiation Therapy: No - Surgical History Surgery Procedure, Year, and Place: TONSILECTOMY. HERNIA. APPENDECTOMY. CATARACT. Rt CARPAL TUNNEL. TUBAL LIGATION. POWER PORT 06/2018 Hx Anesthesia Reactions: No Infectious Disease History: No Infectious Disease History: Denies: Traveled Outside the [place] in Last 30 Days - Family History Known Family History: Negative: Diabetes - Social History Alcohol Use: Occasionally Substance Use Type: Reports: None Hx Tobacco Use: Yes Smoking Status (MU): Former Smoker Amount Used/How Often: 1 PPD X 50 YEARS Have You Smoked in the Last Year: Yes Review of Systems Positive: Chills, Skin Diaphoresis. Negative: Fever Negative: Chest Pain Positive: Abdominal Pain - umbilical, cramping, Vomiting - two episodes, once today and once yesterday, Nausea. Negative: Diarrhea Positive: other - NEGATIVE: changes in urinary output. Negative: dysuria, hematuria Negative: Edema All Other Systems Reviewed And Are Negative: Yes Physical Exam - Summary Physical Exam Summary: Constitutional: Well-developed, Well-nourished, Alert. (-) Distressed Skin: Warm, Dry HENT: Normocephalic; Atraumatic Eyes: Conjunctiva normal Neck: Musculoskeletal ROM normal neck. (-) JVD, (-) Stridor, (-) Tracheal deviation Cardio: Rhythm regular, rate normal, Heart sounds normal; Intact distal pulses; The pedal pulses are 2+ and symmetric. Radial pulses are 2+ and symmetric. (-) Murmur Pulmonary/Chest wall: Effort normal. (-) Respiratory distress, (-) Wheezes, (-) Rales Abd: Soft, (+) Right, middle, and diffuse lower tenderness, (-) Distension, (-) Guarding, (+) Mild rebound Musculoskeletal: (-) Edema, No CVA tenderness, Trace pitting edema bilaterally Lymph: (-) Cervical adenopathy Neuro: Alert, Oriented x3 Psych: Mood and affect Normal Triage Information Reviewed: Yes Vital Signs On Initial Exam: Initial Vitals Temp Pulse Resp BP Pulse Ox 97.8 F 77 16 122/74 98 09/27/18 17:28 09/27/18 17:28 09/27/18 17:28 09/27/18 17:28 09/27/18 17:28 Vital Signs Reviewed: Yes Diagnostics - Vital Signs Vital Signs Temp Pulse Resp BP Pulse Ox 09/27/18 19:08 98 F 73 16 107/59 98 09/27/18 17:28 97.8 F 77 16 122/74 98 - Laboratory Lab Results: Lab Results 09/27/18 09/27/18 Range/Units 19:51 19:51 Sodium 135 (135-145) mmol/L Potassium 4.3 (3.5-5.0) mmol/L Chloride 100 L (101-111) mmol/L Carbon Dioxide 24 (22-32) mmol/L Anion Gap 11 (2-11) mmol/L BUN 37 H (6-24) mg/dL Creatinine 1.13 H (0.51-0.95) mg/dL Est GFR ( Amer) 56.6 (>60) Est GFR (Non-Af Amer) 46.8 (>60) BUN/Creatinine Ratio 32.7 H (8-20) Glucose 191 H (70-100) mg/dL Lactic Acid 1.0 (0.5-2.0) mmol/L Calcium 10.2 (8.6-10.3) mg/dL Total Bilirubin 1.00 (0.2-1.0) mg/dL AST 17 (13-39) U/L ALT 11 (7-52) U/L Alkaline Phosphatase 83 (34-104) U/L C-Reactive Protein 20.80 H (<8.01) mg/L Total Protein 6.4 (6.4-8.9) g/dL Albumin 3.9 (3.2-5.2) g/dL Globulin 2.5 (2-4) g/dL Albumin/Globulin Ratio 1.6 (1-3) Lipase 24 (11.0-82.0) U/L Result Diagrams: 09/27/18 20:21 09/27/18 19:51 Lab Statement: Any lab studies that have been ordered have been reviewed, and results considered in the medical decision making process. - EKG 21:29 Cardiac Rate: NL - 72 BPM EKG Rhythm: Sinus Rhythm Summary of EKG Findings: Normal sinus rhythm at 72 bpm, normal ND, normal QRS, normal QTc, normal axis, normal ST, normal T-waves, normal EKG. Abdominal Pain Fem Course/Dx - Course Course Of Treatment: The patient is a 78 y/o F presenting to [facility] accompanied by daughters with a chief complaint of sudden onset umbilical and suprapubic abd cramping for the last two days with two episodes of vomiting since onset. Upon physical exam, the patient exhibits no CVA tenderness,trace pitting edema bilaterally and ight, middle, and diffuse lower abd pain with some mild rebound. In the ED course, the patient was administered Emla, Zofran, and Visipaque for CT. Blood work reveals elevated RDW, BUN, creatinine, glucose, and CRP, and decreased absolute lymphs. EKG is NSR at 72 BPM. She is diagnosed with abd pain. Patient is a sign-out to Dr. Liam Appiah MD, at change of shift at 22:00 pending UA, CT Abd/Pel, and disposition. - Diagnoses Provider Diagnoses: Abdominal pain Discharge - Sign-Out/Discharge Documenting (check all that apply): Sign-Out Patient Signing out patient TO: Liam Appiah - Patient is a sign-out to Dr. Appiah pending UA, CT Abd/Pel, and disposition. Patient Received Moderate/Deep Sedation with Procedure: No - Discharge Plan Referrals: Kathy Luciano MD [Primary Care Provider] - - Attestation Statements Document Initiated by Pura: Yes Documenting Scribe: Deborah Bernard Provider For Whom Pura is Documenting (Include Credential): Dr. Heidi Garcia MD Scribe Attestation: Deborah Christiansen scribed for Dr. Heidi Garcia MD on 09/27/18 at 2233. Scribe Documentation Reviewed: Yes Provider Attestation: The documentation as recorded by the Deborah hernández accurately reflects the service I personally performed and the decisions made by me, Dr. Heidi Garcia MD Status of Scribe Document: Viewed
[2018-09-27] MEDS ORDERED: Iodixanol* (CONTRAST) 320 MG/ML 100 ML SDV IV ONE (20:48)
[2018-09-27] MEDS ORDERED: Ondansetron INJ* 2 MG/ML VIAL IV ONE (21:19)
[2018-09-27] MEDS ORDERED: Lidocaine 2.5%/Prilocain 2.5%* 5 GM TUBE TOPICAL ONE (21:20)
[2018-09-27] MEDS ORDERED: Lidocaine 2.5%/Prilocain 2.5%* 5 GM TUBE ONE (21:20)
[2018-09-27] MEDS ORDERED: NS 0.9% 1000 ML** 1,000 ML IV ONE (22:32)
--- NOTE | 2018-09-27 23:30 | ED ---
Progress - Progress Note Progress Note: This patient was signed out from Dr. Garcia to Dr. Appiah at 22:[address] abdomen/pelvis, UA and disposition. Abdomen/pelvis CT impression: 1. Findings concerning for early small bowel obstruction and less likely ileus, given the potential transition point in the distal right ileum and decompressed distal small bowel loops. 2. New 2.5 cm ill-defined low-density lesion in the inferior right hepatic lobe, concerning for metastatic lesion. Correlate clinically with history of malignancy. 3. Trace degree of nonspecific free fluid in the pelvis. 4. Other chronic findings, as above. ED physician has reviewed this imaging report. Nasogastric tube was placed and patient was given 300 ccs of bilious. Case discussed with Dr. Padilla, hospitalist, who accepted the patient for admission. The patient is agreeable with this plan. Re-Evaluation - Re-Evaluation First Eval Re-Evaluation Time: 23:34 Course/Dx - Course Course Of Treatment: This patient was signed out from Dr. Garcia to Dr. Appiah at 22:00 09/27/[address] abdomen/pelvis, UA and disposition. Abdomen/pelvis CT impression: 1. Findings concerning for early small bowel obstruction and less likely ileus,. given the potential transition point in the distal right ileum and decompressed. distal small bowel loops. 2. New 2.5 cm ill-defined low-density lesion in the inferior right hepatic. lobe, concerning for metastatic lesion. Correlate clinically with history of. malignancy. 3. Trace degree of nonspecific free fluid in the pelvis. 4. Other chronic findings, as above. ED physician has reviewed this imaging report. Nasogastric tube was placed and patient was given 300 ccs of bilious. Case discussed with Dr. Padilla, hospitalist, who accepted the patient for admission. The patient is agreeable with this plan. - Diagnoses Provider Diagnoses: Small bowel obstruction - Provider Notifications Discussed Care Of Patient With: Balaji Padilla Time Discussed With Above Provider: 00:17 Instructed by Provider To: Admit As Inpatient Discharge - Sign-Out/Discharge Documenting (check all that apply): Patient Departure - admit Patient Received Moderate/Deep Sedation with Procedure: No - Discharge Plan Condition: Fair Disposition: ADMITTED TO [facility] - Billing Disposition and Condition Condition: FAIR Disposition: Admitted to [facility] - Attestation Statements Document Initiated by Scribe: Yes Documenting Scribe: Kit Baldwin Provider For Whom Scribe is Documenting (Include Credential): Liam Appiah MD Scribe Attestation: I, Kit Baldwin, scribed for Liam Appiah MD on 09/28/18 at 0608. Scribe Documentation Reviewed: Yes Provider Attestation: The documentation as recorded by the Kit hernández accurately reflects the service I personally performed and the decisions made by me, Liam Appiah MD Status of Scribe Document: Viewed
[2018-09-28] MEDS ORDERED: Dextrose 50% Syringe 50 ML* 25 GM/50 ML SYRINGE IV PUSH PRN (01:21)
[2018-09-28] MEDS ORDERED: NS 0.9% 1000 ML** 1,000 ML IV SCH (01:30)
[2018-09-28] MEDS ORDERED: Ondansetron INJ* 2 MG/ML VIAL IV PRN (01:43)
[2018-09-28] MEDS: Levothyroxine TAB* 112 MCG TAB PO SCH (06:05)
--- NOTE | 2018-09-28 06:15 | HP ---
HISTORY AND PHYSICAL: DATE OF ADMISSION: 09/28/18 ADMITTING PROVIDER: Balaji Padilla MD. PRIMARY CARE PROVIDER: Kathy Luciano MD. CHIEF COMPLAINT: Abdominal cramping, nausea, vomiting; first loose stools and then lack of any stools. HISTORY OF PRESENT ILLNESS: Lizet Crowe is a 78-year-old female with past medical history of stage IV non-small cell lung cancer, on maintenance pemetrexed (diagnosed in 2017) with a recent liver biopsy for 1.9 cm new liver lesion, which did not show evidence of metastatic lesion, also hypertension and hypothyroidism. She was in her usual state of health having had latest chemotherapy on 09/22/18. On Thursday night, 09/25/18, 3 nights prior to admission, she started to develop some abdominal cramping. She had 10 loose bowel movements on 09/26/18, 2 days prior to admission, and slept most of the day, feeling significant fatigue. She developed nausea and vomiting on the day of admission with worse abdominal cramps. She vomited 3 times. She presented to [facility] Emergency Room, had a CT scan of her abdomen and pelvis with IV contrast, which demonstrated findings concerning for early small bowel obstruction and less likely ileus with a potential transition point at the distal right ilium and decompressed distal small bowel loops. There was a "new " 2.5 cm ill- defined, low-density lesion in the inferior right hepatic lobe concerning for metastatic lesion (though of note had biopsy of a 1.9 cm lesion also in the inferior right hepatic lobe on 08/09/18 that did not find e/o metastasis). She was referred to the hospitalist service for admission for small bowel obstruction after having had a NG tube placed, and currently has 400 cc of greenish liquid in her wall suction canister. Further workup is significant for slight KARI with creatinine 1.13 from 0.83 six days prior. CRP of 20.8. She is afebrile. She is feeling a little bit better after the placement of the NG tube. Of note, also she has an IVC filter which Dr. Luciano has arranging to be removed by Dr. Marquez (that is scheduled for ). She denies any chest pains. She is dyspneic on exertion at baseline, but has been more fatigued than usual. She gets chills ever since chemotherapy started. Denies fever. PAST MEDICAL HISTORY: 1. Stage IV non-small cell lung cancer (diagnosed in 2017, on pemetrexed). 2. COPD. 3. [id number] diabetes mellitus type 2. 4. Right lower lobe PE, status post IVC filter. 5. Former [id number] smoker. 6. Hypertension. 7. Hypothyroidism. MEDICATIONS: Include: 1. Amlodipine 5 mg. 2. Folic acid 1 mg p.o. daily. 3. Decadron 4 mg, occasionally with chemotherapy, has not had in a long time. 4. Glipizide 5 mg p.o. q.a.m. 5. Simvastatin 20 mg p.o. q.a.m. 6. Compazine 10 mg p.o. q.6 hours p.r.n. 7. Metoprolol succinate 50 mg p.o. q.a.m. 8. Lisinopril 30 mg p.o. q.a.m. 9. Levothyroxine 112 mcg p.o. q.a.m. ALLERGIES: Strawberries (angioedema), FOSAMAX (fatigue). FAMILY HISTORY: Mother had stomach metastatic to the brain cancer, in her late 70s. Father of lung cancer, also in his late 70s. Maternal uncle had prostate cancer. SOCIAL HISTORY: The patient is a former smoker, quit in 2017, 1 1/2 packs per day for 45 years total (~65 pack years). She rarely drinks alcohol, no drug use. Medical surrogate decision maker is her , Peng Crowe. She desires to be a full code. REVIEW OF SYSTEMS: A complete 14-point review of systems was negative except as per HPI. PHYSICAL EXAMINATION GENERAL: In no acute distress. VITAL SIGNS: Temperature 97.8, pulse rate 77, respiratory rate 16, satting 90% on room air, blood pressure 122/74. HEENT: Normocephalic, atraumatic. Pupils are equal, round, and reactive to light. Extraocular motions intact. No scleral icterus. NG tube in place. NECK: Supple. No cervical lymphadenopathy. LUNGS: Clear to auscultation except for blowing rhonchi at the left base. CARDIOVASCULAR: Regular rate and rhythm. No murmurs, rubs, or gallops. ABDOMEN: Slightly tender, worse at the suprapubic area. EXTREMITIES: Warm and well perfused. No peripheral edema. NEUROLOGIC: Cranial nerves II through XII intact. Moving all extremities. Tour Consultant strength intact. SKIN: No lesions. No rashes. DIAGNOSTIC STUDIES/ LAB DATA: White count 3.7, hemoglobin 13.2, hematocrit 39 , platelets 201. RDW 21. Sodium 135, potassium 4.3, chloride 100, carbon dioxide 24, BUN 37, creatinine 1.13, glucose 191, lactic acid 1.1, calcium 10.2. Total bili 1.0, AST 17, ALT 11, alk phos 83, CRP 20.8, albumin 3.9, lipase 24. Imaging: CT abdomen and pelvis with IV contrast demonstrated: 1. Findings concerning for early small bowel obstruction, less likely ileus given the potential transition point in the distal right ileum and decompressed distal small bowel loops. 2. New 2.5-cm, ill-defined, low-density lesion in the inferior right hepatic lobe concerning for metastatic lesion, correlate clinically with history of malignancy. 3. Trace degree of non-specific free fluid in the pelvis. EKG: Normal sinus rhythm, no ST elevations or depressions. Normal axis. Heart rate 72. QTc 414. ASSESSMENT AND PLAN: Lizet Crowe is a 78-year-old female with past medical history of stage IV non-small cell lung cancer, on pemetrexed for last two years and recently had biopsy of the 1.9 cm right inferior hepatic lobe lesion on 08/09/18. There was no evidence of malignancy there on pathology. She is presenting now with a few days of increasing nausea, vomiting, abdominal cramps , first diarrhea and then cessation of any bowel movements and CT scan concerning for early small bowel obstruction. 1. Small Bowel Obstruction (early). She has had NG tube placed. We will continue IV fluids, NPO status, antiemetics with Zofran prn. Consideration for surgery consult in the morning depending on clinical course. 2. Acute kidney injury(mild): with creatinine of 1.13, continue IV fluids. I am going to scan her bladder because she has not had a urination in 1 day actually and continue IV fluids at 125 cc an hour for the next 10 hours at least. Hold ACEI 3. Hypertension, continuing metoprolol succinate 50 mg p.o. q.a.m. I am going to hold her lisinopril in the setting of mild KARI. She is normotensive here. I am going to hold her amlodipine for now, but that will be the first to restart. 4. Hypothyroidism, continue her levothyroxine 112 mcg p.o. q.a.m. or if still NPO, it is okay to miss that for a few days. 5. Stage IV non-small cell lung cancer and the 2.5 cm inferior right hepatic lobe lesion seen today, it seems to be in a similar location to the 1.9 cm lesion from 07/26/18 that has already been biopsied. Will defer to further evaluation by Dr. Luciano. She is a full code. Medical surrogate is her Peng Crowe. For DVT prophylaxis, starting Lovenox 40 mg daily as she is high risk given her malignancy and age. [id number]/[facility] #: [id number] MTDD
[2018-09-28 06:16] LABS: BUN/Creatinine Ratio 36.9 (8-20); Calcium 9.5 mg/dL (8.6-10.3); EGFR Non-African American 52.1 (>60)
[2018-09-28] MEDS ORDERED: glipiZIDE TAB.XL* 2.5 MG PO SCH (09:00)
--- NOTE | 2018-09-28 10:05 | PN ---
Progress Note - Progress Note Date of Service: 09/28/18 SOAP: Subjective: []Admitted last night with SBO. Last BM 09/25, Sat. PM at which time she started feeling poorly with abd. pain. Stool loose at that time. Thursday spent all day in bed and tells me she "felt like shit." Office called by family Thursday PM d/t palor, lack of PO intake, abd. pain, and emesis. NG tube placed approx. 2300 last night. Minimal output this AM. States she is feeling better today, though still has some abd. cramping. States she is passing gas. "I'm so thirsty." Medications: Dextrose (D50w Syringe 50 Ml*) 12.5 gm IV PUSH .FOR FS < 60 - SS PRN PRN Reason: FS < 60 Enoxaparin Sodium (Lovenox(*)) 40 mg SUBCUT Q24H [facility] Folic Acid (Folvite Tab*) 1 mg PO QPM [facility] Sodium Chloride (Ns 0.9% 1000 Ml) 1,000 mls @ 125 mls/hr IV PER RATE [facility] Stop: 09/28/18 11:29 Last Admin: 09/28/18 02:57 Dose: 125 mls/hr Insulin Human Lispro (Humalog*) 0 units SUBCUT ACHS [facility]; Protocol Levothyroxine Sodium (Synthroid Tab*) 112 mcg PO 0600 [facility] Last Admin: 09/28/18 06:05 Dose: Not Given Metoprolol Succinate (Toprol Xl Tab*) 50 mg PO QAM [facility] Ondansetron HCl (Zofran Inj*) 4 mg IV Q6H PRN PRN Reason: NAUSEA Objective: [] Vital Signs Temp Pulse Resp BP Pulse Ox 98.4 F 72 18 109/43 97 09/28/18 07:28 09/28/18 07:28 09/28/18 08:00 09/28/18 07:28 09/28/18 07:28 A&Ox3, EOMI, MCKEON, good strength = bilat. HRR, S1S2, mumur noted LS clear bilat. +BS x4 quads, abd. round and slightly distended, soft with tenderness to LUQ and RLQ, tymphany throughout +PP=bilat., no edema Laboratory Results - last 24 hr 09/27/18 09/27/18 09/27/18 19:51 19:51 20:21 WBC 3.7 RBC 4.80 Hgb 13.2 Hct 39 MCV 82 MCH 27 MCHC 34 RDW 21 H Plt Count 201 MPV 7.8 Neut % (Auto) 86.0 Lymph % (Auto) 10.7 [place] % (Auto) 2.5 Eos % (Auto) 0.6 Baso % (Auto) 0.2 Absolute Neuts (auto) 3.2 Absolute Lymphs (auto) 0.4 L Absolute Monos (auto) 0.1 Absolute Eos (auto) 0 Absolute Basos (auto) 0 Absolute Nucleated RBC 0 Nucleated RBC % 0.1 Sodium 135 Potassium 4.3 Chloride 100 L Carbon Dioxide 24 Anion Gap 11 BUN 37 H Creatinine 1.13 H Est GFR ( Amer) 56.6 Est GFR (Non-Af Amer) 46.8 BUN/Creatinine Ratio 32.7 H Glucose 191 H POC Glucose (mg/dL) Lactic Acid 1.0 Calcium 10.2 Total Bilirubin 1.00 AST 17 ALT 11 Alkaline Phosphatase 83 C-Reactive Protein 20.80 H Total Protein 6.4 Albumin 3.9 Globulin 2.5 Albumin/Globulin Ratio 1.6 Lipase 24 09/27/18 09/28/18 09/28/18 23:06 05:32 07:51 WBC RBC Hgb Hct MCV MCH MCHC RDW Plt Count MPV Neut % (Auto) Lymph % (Auto) [place] % (Auto) Eos % (Auto) Baso % (Auto) Absolute Neuts (auto) Absolute Lymphs (auto) Absolute Monos (auto) Absolute Eos (auto) Absolute Basos (auto) Absolute Nucleated RBC Nucleated RBC % Sodium 138 Potassium 4.0 Chloride 102 Carbon Dioxide 28 Anion Gap 8 BUN 38 H Creatinine 1.03 H Est GFR ( Amer) 63.0 Est GFR (Non-Af Amer) 52.1 BUN/Creatinine Ratio 36.9 H Glucose 168 H POC Glucose (mg/dL) 122 H Lactic Acid 1.1 Calcium 9.5 Total Bilirubin AST ALT Alkaline Phosphatase C-Reactive Protein Total Protein Albumin Globulin Albumin/Globulin Ratio Lipase Assessment: []78 yo female with stage IV NSCLC on maintenance Pemetrexed (C25 given 09/24) as well as a stage I colon cancer endoscopically resected in 2017, presented to the ED with 3 days of abd. pain and constipation with emesis found to have a small bowel obstruction now clinically improving s/p NG placement overnight. Plan: []1. SBO: clinically improved with decreased abd. pain and no emesis overnight, passing gas. - Recommend clamping NG tube now, enc. ambulation and if remaining stable @ 1400 check abd. x-ray and consider d/c'ing NG tube - no surgical consult needed at this time as she is improving with medical management - cont. NPO status, however OK to have sips of water today, do not progress diet until tomorrow if continuing to improve - enc. ambulation - once clears obstruction consider GI consult for possible endoscopy d/t history of colon cancer, however no roll at this time and obstruction appears higher then area of disease previously 2. NSCLC: well controlled with recent question of liver lesion found to be neg. for malignancy - CT in ER read as new lesion, but corresponds with know lesion - Resume chemo once stable Dispo: inpatient for acute SBO, will return home once resolved
[2018-09-28] MEDS: Metoprolol Succinate XL TAB* 50 MG PO SCH (11:34)
[2018-09-28] MEDS: Enoxaparin(*) 40 MG/0.4 ML SYR SUBCUT SCH (11:35)
[2018-09-28] MEDS: Insulin LISPRO* 1 UNITS UNIT SUBCUT SCH ×4 (11:36→21:32)
[2018-09-28 15:40] LABS: Urine Appearance Cloudy; Urine Bacteria Absent (Absent); Urine Bilirubin Negative (Negative); Urine Blood 1+ (Negative); Urine Color Yellow; Urine Glucose Negative (Negative); Urine Ketones Trace (Negative); Urine Nitrite Negative (Negative); Urine Protein Negative (Negative); Urine Red Blood Cell 1+(3-5/hpf) (Absent); Urine Specific Gravity 1.039 (1.010-1.030); Urine Squamous Epithelial Cell Present (Absent); Urine Urobilinogen Positive (Negative); Urine White Blood Cell Trace(0-5/hpf) (Absent)
[2018-09-28] MEDS ORDERED: Folic Acid TAB* 1 MG PO SCH (18:00)
[2018-09-29] MEDS: Levothyroxine TAB* 112 MCG TAB PO SCH (05:59)
[2018-09-29 08:08] VITALS: BP 105/54
[2018-09-29] MEDS: Insulin LISPRO* 1 UNITS UNIT SUBCUT SCH ×2 (08:14→11:24)
[2018-09-29] MEDS: Enoxaparin(*) 40 MG/0.4 ML SYR SUBCUT SCH (08:20)
[2018-09-29] MEDS: Metoprolol Succinate XL TAB* 50 MG PO SCH (08:21)
== END 2018-09-29 14:50 | disposition home or self-care (01) ==
LOC: ED 16:46 → MED 09-28 00:56
PROVIDERS: ADMIT Internal Medicine; ATTEND Internal Medicine Hematology & Oncology
DX: K56.609 Unspecified intestinal obstruction, unspecified as to partial versus complete obstruction (principal); R11.2 Nausea with vomiting, unspecified; E11.9 Type 2 diabetes mellitus without complications; K21.9 Gastro-esophageal reflux disease without esophagitis; Z87.891 Personal history of nicotine dependence; R10.9 Unspecified abdominal pain; C34.90 Malignant neoplasm of unspecified part of unspecified bronchus or lung; J44.9 Chronic obstructive pulmonary disease, unspecified; I26.99 Other pulmonary embolism without acute cor pulmonale; I10 Essential (primary) hypertension; E03.9 Hypothyroidism, unspecified
CPT/HCPCS: 36415; 74019; 74177; 80048; 80053; 81003; 81015; 83605; 83690; 85025; 86140; 87040; 87086; 93005; 96361; 96372; 96374; 99226; 99285; A9270-GY; G0378; J1650; J2405; Q9967

== ENCOUNTER → 2018-10-08 08:07 | Day surgery (SDC) | payer MEDICARE, BC ==
[~2018-10-08 08:07] MED LIST changes: -Buffered Lidocaine 0.9% SYRIN* 5 ML/SYR SYRINGE INTRADERM ONE; +Heparin 2 UNITS/ML IVPREMIX* 2,000 UNIT/1,000 ML BAG IV ONE; +Iodixanol 320 (CONTRAST) 100 ML SDV ONE; +Iohexol 350 (CONTRAST) 200 ML MDV IV ONE; +LORazepam TAB(*) 1 MG ONE; +Lidocaine 1% INJ* 10 MG/ML 30 ML SDV ONE; +Midazolam* 1 MG/ML 5 ML VIAL (5 MG) ONE; +fentaNYL* 50 MCG/ML 2 ML VIAL (100 MCG VIAL) ONE
[2018-10-08 13:56] VITALS: BP 118/66
== END | disposition home or self-care (01) ==
LOC: CHICATH 08:07
PROVIDERS: ATTEND Radiology Diagnostic Radiology
DX: Z86.711 Personal history of pulmonary embolism (principal); Z85.118 Personal history of other malignant neoplasm of bronchus and lung; Z85.038 Personal history of other malignant neoplasm of large intestine; I10 Essential (primary) hypertension; E03.9 Hypothyroidism, unspecified; J44.9 Chronic obstructive pulmonary disease, unspecified; E11.9 Type 2 diabetes mellitus without complications; Z87.891 Personal history of nicotine dependence
CPT/HCPCS: 37193; 75825; 76937; 99156; 99157; A9270-GY; C1769; C1887; J1644; J2250; J3010